=== PATIENT | female | born 1960 | race Caucasian/White ===

== ENCOUNTER 2022-02-23 12:44 | Outpatient (CLI) | payer MEDICARE, SELFPAY ==
[2022-02-23 22:06] LABS: Chloride* 105 mmol/L (96-114)
[2022-02-23 22:07] LABS: Albumin* 4.6 g/dL (3.3-5.0); Sodium* 137 mmol/L (135-149)
[2022-02-23 22:08] LABS: Potassium* 4.3 mmol/L (3.6-5.1)
[2022-02-23 22:10] LABS: Alkaline Phosphatase* 82 U/L (40-150); Aspartate Amino Transferase* 26 U/L (12-35); Bilirubin Total* 0.4 mg/dL (0.1-1.5); Blood Urea Nitrogen* 15 mg/dL (7-30); Carbon Dioxide* 25 mmol/L (20-32); Cholesterol* 181 mg/dL (90-199); Creatinine* 0.9 mg/dL (0.5-1.5); Estimated Glomerular Filt Rate 73 ml/min; Glucose* 89 mg/dL (60-115); Total Protein* 6.8 g/dL (6.0-8.3)
[2022-02-23 22:11] LABS: Alanine Aminotransferase* 21 U/L (4-35); Calcium* 9.5 mg/dL (8.4-10.6); HDL Cholesterol* 61 mg/dL (>=50); LDL Cholesterol Calculated 91 mg/dL (<100); Triglycerides* 146 mg/dL (40-149)
[2022-02-23 22:43] LABS: Amphetamine Screen Urine Negative (Negative); Barbiturate Screen Urine Negative (Negative); Benzodiazepines Screen Urine Negative (Negative); Cocaine Screen Urine Negative (Negative); Methadone Screen Urine Negative (Negative); Methamphetamines Screen Urine Negative (Negative); Opiate Screen Urine Negative (Negative); Oxycodone Screen Urine Negative (Negative); Phencyclidine Screen Urine Negative (Negative); Tricyclic Antidepressant Urine Negative (Negative)
[2022-02-23 22:49] LABS: Cannabinoid Screen Urine POSITIVE (Negative)
[2022-02-24] LABS: Microalbumin Creatinine Ratio 250 mg/g (0-30); Microalbumin Urine < 1 mg/dL
== END 2022-02-23 12:45 | disposition home or self-care (01) ==
PROVIDERS: PCP Family Medicine; Visit Provider Family Medicine
DX: Z00.00 Encounter for general adult medical examination without abnormal findings (principal); R53.83 Other fatigue; E78.5 Hyperlipidemia, unspecified; I10 Essential (primary) hypertension; F41.9 Anxiety disorder, unspecified; Z79.899 Other long term (current) drug therapy; Z51.81 Encounter for therapeutic drug level monitoring; G89.29 Other chronic pain; Z13.29 Encounter for screening for other suspected endocrine disorder
CPT/HCPCS: 80053; 80061; 80306; 82043; 82570; 84443

== ENCOUNTER 2022-03-23 11:09 | Outpatient (CLI) | payer MEDICARE, SELFPAY ==
--- NOTE | 2022-03-23 11:00 | CRLHL7_ITS ---
For Patients: As a result of the Century Cures Act, medical imaging exams and procedure reports are released immediately into your electronic medical record. You may view this report before your referring provider. If you have questions, please contact your health care provider. INDICATION: proteinuria, HTN TECHNIQUE: Grayscale, color Doppler and power Doppler evaluation of the renal arteries performed. COMPARISON: None available FINDINGS: BILATERAL RENAL ARTERY DUPLEX ULTRASOUND ABDOMINAL AORTA: Peak systolic velocity = 70 cm/s. No aortic aneurysm. RIGHT KIDNEY: 11.8 cm in length. There is no hydronephrosis. 1.2 cm simple cyst upper pole. Peak systolic velocity = 113 cm/second Renal artery to aortic peak systolic velocity ratio = 1.6 Resistive indices: 0.5-0.6 Renal vein = patent LEFT KIDNEY: 11.7 cm in length. There is no hydronephrosis. 1.2 cm simple cyst lower pole Peak systolic velocity = 117 cm/second Renal artery to aortic peak systolic velocity ratio = 1.7 Resistive indices: 0.5 Renal vein = patent IMPRESSION: No evidence of significant renal artery stenosis. Dictated by Berry Wallace MD @ 03/23/2022 2:12:33 PM (Electronically Signed)
--- OUTSIDE RECORDS SUMMARY | 2022-03-23 11:12 | XMS_ITS | Clinical Summary ---
:1960 Author Organization [facility] [place] [address] Care Team Providers Name Role Phone Pcp, No Primary Care Provider Unavailable Allergies No known active allergies Medications Medication Sig Dispensed Refills Start Date End Date Status albuterol HFA Inhale 2 Puffs by 1 Inhaler 2 02/14/2015 Active (PRO-AIR,VENTOLIN,PROVE mouth every 4 NTIL) 90 mcg/actuation hours if needed. inhalerIndications: proventil Asthma exacerbation mometasone-formoterol Inhale 2 Puffs by 1 Inhaler 5 02/14/2015 Active (DULERA) 200-5 mouth 2 times mcg/actuation daily. inhalerIndications: Asthma, mild persistent, uncomplicated lisinopril (PRINIVIL; Take 1 tablet by 90 tablet 0 02/01/2016 Active ZESTRIL) 10 mg mouth once daily. tabletIndications: HTN (hypertension) simvastatin (ZOCOR) 40 Take 1 tablet by 60 tablet 0 07/02/2016 Active mg tabletIndications: mouth once daily Other hyperlipidemia with evening meal. Active Problems Problem Noted Date Hyperlipidemia 08/07/2015 Asthma 07/30/2014 HTN (hypertension) 07/30/2014 Resolved Problems Problem Noted Date Resolved Date Hyperlipidemia 07/30/2014 08/07/2015 Immunizations Name Administration Dates Next Due COVID-19 vaccine (Moderna 100mcg/0.5mL) PFJOSEF 11/13/2020, 10/16/2020 Influenza, IIV4 08/07/2015 Tdap 08/07/2015 Family History Medical History Relation Name Comments Good Health Mother Relation Name Status Comments Mother Social History Tobacco Use Types Packs/Day Years Used Date Never Smoker Smokeless Tobacco: Never Used Alcohol Use Standard Drinks/Week Comments Yes 0 (1 standard drink = 0.6 oz pure alcoho l) occasional Alcohol Habits Answer Date Recorded How often do you have a drink containing alcohol? Not asked How many drinks containing alcohol do you have on a typical Not asked day when you are drinking? How often do you have six or more drinks on one occasion? No t asked Comment: occasional 07/30/2014 Sex Assigned at Date Recorded Not on file Obstetrics History Last Filed Vital Signs Vital Sign Reading Time Taken Comments Blood Pressure 130/90 08/15/2015 8:39 AM FRONT SIGHT ATTACHER Pulse 62 08/15/2015 8:36 AM FRONT SIGHT ATTACHER Temperature 36.5 ??C (97.7 ??F) 07/30/2014 7:53 AM FRONT SIGHT ATTACHER Respiratory Rate - - Oxygen Saturation 96% 07/30/2014 7:53 AM FRONT SIGHT ATTACHER Inhaled Oxygen Concentration - - Weight 113.7 kg (250 lb 11.2 oz) 08/07/2015 9:50 AM FRONT SIGHT ATTACHER Height 160.7 cm (5' 3.25) 08/07/2015 9:50 AM FRONT SIGHT ATTACHER Body Mass Index 44.06 08/07/2015 9:50 AM FRONT SIGHT ATTACHER Plan of Treatment Health Maintenance Due Date Last Done Comments Hepatitis C screening for age 18-79 1979 Colonoscopy through age 75 2006 Mammogram for age 45-75 2006 Zoster (shingles) series for age 1003/30/2011 50+ (1 of 2) BMI (ht and wt on same day) for age 0208/07/2016 08/07/2015 18+ Depression screening for age 12+ 08/07/2016 08/07/2015 Pap test for age 21-65 08/07/2018 08/07/2015, 01/12/2012 (Completed outside of [facility]) Lipids for age 45-75 08/07/2020 08/07/2015, 02/14/2015, 07/30/2014 COVID-19 vaccine series (3 - 04/15/2021 11/13/2020, 021 Booster for Moderna series) Influenza for age 50-64 02/11/2022 08/07/2015 Tetanus booster 08/07/2025 08/07/2015 Tdap Completed 08/07/2015 Goals Goal Patient Goal Associated Recent Patient-Stated? Author Type Problems Progress BLOOD PRESSURE Blood Pressure No Chao, - MAINTAINS BP Idalia P, less than 140/90 Results Not on filefrom Last 3 Months Insurance Payer Benefit Plan / Subscriber ID Effective Phone Address T ype Group Dates COMMERCIAL COMMERCIAL [id number] 2014-Pres [phone] [phone] [place] [address] MEDICARE PART A MEDICARE PART A [id number] 2014-Prese ATTN: CLAIMS - HB USE ONLY HB ONLY nt [address] [place] [address] MEDICARE - PB MEDICARE PB [id number] 2015-Prese ATTN: CLAIMS USE ONLY ONLY nt [address] [place] [address] Rhea OTT Third Green Party Self [id number] (Home) [address] [place] [address] Care Teams Scada Technician Relationship Specialty Start Date End Date Pcp, No PCP - General 09/30/16 .
== END 2022-03-23 11:10 | disposition home or self-care (01) ==
LOC: US 11:11
PROVIDERS: PCP Family Medicine; Visit Provider Internal Medicine Nephrology
DX: R80.9 Proteinuria, unspecified (principal); I10 Essential (primary) hypertension
CPT/HCPCS: 76775; 93975

== ENCOUNTER 2022-05-11 15:51 | Outpatient (CLI) | payer MEDICARE, SELFPAY ==
--- OUTSIDE RECORDS SUMMARY | 2022-05-11 07:56 | XMS_ITS | Clinical Summary ---
:1960 Author Organization [facility] Address [address] [place] [address] Care Team Providers Name Role Phone Unavailable Primary Care Provider Unavailable Source Comments Patient records contain information from all sites at [facility]. For routine questions regarding patient records, call [phone] during business hours, M-F 8:00 AM - 5:00 PM Central Time. Record requests for emergency care only can be directed to [phone] at any time.[facility] Medications Medication Sig Dispensed Refills Start Date End Date Status albuterol 90 Inhale 2 puffs. 0 02/14/2015 Active mcg/actuation inhaler lisinopriL Take 1 tablet by 0 02/01/2016 A ctive (PRINIVIL,ZESTRIL) 10 mouth daily. mg tablet mometasone-formoterol Inhale 2 puffs 2 0 02/14/2015 Active (DULERA 200) 200-5 (two) times a mcg/actuation inhaler day. simvastatin (ZOCOR) 40 Take 40 mg by 0 07/02/2016 Active mg tablet mouth. Active Problems Problem Noted Date Chronic Kidney Disease Stage 1 Glomerular Filtration R ate Greater Than 90 03/16/2022 Hyperlipidemia 08/07/2015 Asthma 07/30/2014 Hypertension And Chronic Kidney Disease Stage 1 2014 Encounters Date Type Specialty Care Team Description 03/16/2022 External Outreach Nephrology and Shola, Hyperten devika And Chronic Kidney Disease Stage 1 (Primary Dx); Hypertension Ortiz Louis Jr., Chronic Kidney Disease Stage 1 Glomerular Filtration Rate Greater Than 90; D.O. Hyperlipidemia; Asthma (HCC) from Last 3 Months Social History Tobacco Use Types Packs/Day Years Used Date Smoking Tobacco: Never Assessed Sex Assigned at Date Recorded Not on file Last Filed Vital Signs Vital Sign Reading Time Taken Comments Blood Pressure 122/82 03/16/2022 3:00 PM CDT Pulse 71 03/16/2022 3:00 PM CDT Temperature 36.5 ??C (97.7 ??F) 03/16/2022 3:00 PM CDT Respiratory Rate - - Oxygen Saturation - - Inhaled Oxygen Concentration - - Weight 125 kg (274 lb 14.6 oz) 03/16/2022 3:00 PM CDT Height 160 cm (5' 2.99) 03/16/2022 3:00 PM CDT Body Mass Index 48.71 03/16/2022 3:00 PM CDT Plan of Treatment Health Maintenance Due Date Last Done Comments CT Colonography 1960 Cervical Cancer Screening 1960 Cologuard 1960 Colonoscopy 1960 Colorectal Cancer Screening 1960 Creatinine Level 1961 FIT 1961 Fasting Glucose for Diabetes Screening 1960 HIV Screening 1960 Hepatitis C Screening 1961 Lipid (Cholesterol) Screening 1960 Mammogram 1960 Potassium Level 1961 Sodium Level 1960 Pneumococcal vaccine (0-64 years) (1 - 1967 PCV) COVID-19 Vaccine (3 - Booster for Moderna 01/08/20212020, 10/16/2020 series) Depression Screening (Annual PHQ-2) 06/13/2021 Influenza Vaccine (#1) 2022 06/19/2021, 08/07/2015 Office Visit for Blood Pressure Check / 03/16/2023 03/16/20 22 Re-check DTaP,Tdap,and Td Vaccines (2 - Td or Tdap) 08/07/202508/07 Zoster Vaccines Completed 06/19/2021, 03/03/2021 Insurance Payer Benefit Plan / Subscriber ID Effective Dates Phone Addre ss Type Group AARP AARP MEDICARE [id number] 2021-Present [phone] [address] [address] [place] [address]
--- OUTSIDE RECORDS SUMMARY | 2022-05-11 07:56 | XMS_ITS | Encounter Summary ---
:1960 Author Organization [facility] Address [address] [place] [address] Care Team Providers Name Role Phone Unavailable Primary Care Provider Unavailable Reason for Visit Appointment Request (Routine) - Closed Specialty Diagnoses / Procedures Referred By Contact Refer red To Contact Nephrology and Sonia, Hypertension Cher Ray D.O. [address] [place] [address] Referral ID Status Reason Start Date Expiration Date Visits Requ ested Visits Authorized [id number] Closed 03/12/2022 03/12/2023 1 Encounter Details Date Type Department Care Team Description 03/16/2022 External Outreach Division of Alaina Jolley on And Chronic Kidney Disease Stage 1 (Primary Dx); Nephrology and Ortiz Louis Jr., Chronic Kidn ey Disease Stage 1 Glomerular Filtration Rate Greater Than 90; Hypertension in D.O. Hyperlipidemia; [place], [place] [address] [facility] Asthma (HCC) [address] [place] [id number] [phone] Social History Tobacco Use Types Packs/Day Years Used Date Smoking Tobacco: Never Assessed Sex Assigned at Date Recorded Not on file documented as of this encounter Last Filed Vital Signs Vital Sign Reading [...] Mass Index 48.71 03/16/2022 3:00 PM CDT documented in this encounter Progress Notes Ortiz Jolley Jr., D.O. - 03/16/2022 3:00 PM CDT Referring Provider: No primary care provider on file. SUBJECTIVE REASON FOR VISIT [facility] Consultation and management regards microalbuminuria and hypertension HISTORY OF PRESENT ILLNESS Ms. Perea is a 61 y.o. female who presents with a background history of severe asthma, medically complicated overweight situation, hypertension, and a recent discovery of microalbuminuria of 250 milligrams/gram. She is a substantial family history of hypertension, with all of her 1st 2nd and 3rd degree relatives having hypertension beginning early in life. She was discovered in 2007 during an episode of significant asthma. She is been treated and well managed with Khurram inhibition. She is not had lower extremity swelling she is never had hypokalemia, no spells associated with her hypertension. She has not had renal imaging. She does not heavily utilize NSAIDs, nor does she drink alcohol or smoke cigarettes. She avoid sodium as her has hypertension as well. Her blood pressures have been excellent recently. In fact often in physician's offices her blood pressures are somewhat low. She does have joint stiffness and pain but has never had inflammation of her joints. She does not suffer with rash she is not had constitutional complaints. No unintended weight loss, her health screening is up-to-date. No episodes of gout. She does however have a substantial history of sleep disordered breathing. She awakens with snort and start arousal, she awakens quite fatigued, she has frequent morning headaches, her has out voiced concern regards her stopping breathing and snoring patterns. This has been brought up by her primary care physician she is been reluctant to move forward with evaluation. Her asthma is currently well controlled it does have some seasonal aspect. No past medical history on file. Current Outpatient Medications: albuterol 90 mcg/actuation inhaler, Inhale 2 puffs., Disp: , Rfl: lisinopriL (PRINIVIL,ZESTRIL) 10 mg tablet, Take 1 tablet by mouth daily., Disp: , Rfl: mometasone-formoterol (DULERA 200) 200-5 mcg/actuation inhaler, Inhale 2 puffs 2 (two) times a day., Disp: , Rfl: simvastatin (ZOCOR) 40 mg tablet, Take 40 mg by mouth., Disp: , Rfl: REVIEW OF SYSTEMS All other systems reviewed and are negative. OBJECTIVE BP 122/82 Pulse 71 Temp 36.5 ??C Ht 160 cm Wt 125 kg BMI 48.71 kg/m?? PHYSICAL EXAMINATION General: Awake alert oriented HEENT: OK, EOMI, Mucous membranes moist, no oral lesions, oropharynx crowded Neck: No Masses, No Bruits Lungs: Clear to ascultation Heart: Regular Rate and Rhythm, No ectopy Murmurs or rubs Abdomen: Soft, Non-tender Extremities: No cyanosis, No clubbing: No edema Neuro: Cranial Nerves intact, Gait is normal, strength grossly normal Skin: no suspicious lesions identified Psychiatric: Normal affect DIAGNOSTICS Note normal electrolytes normal CBC urinalysis without an active urinary sediment, and microalbumin to creatinine ratio 250 milligrams/gram ASSESSMENT / PLAN #1 Hypertension And Chronic Kidney Disease Stage 1 I am well satisfied with her blood pressure control common believe Khurram inhibition to be the correct agent for her. I am strongly suspicious however that her sleep disordered breathing is actually reflection of obstructive sleep apnea, which is driving perhaps some of her hypertension and likely her proteinuria could be associated with a focal sclerosis lesion which would be secondary to her nocturnal hypoxemia. Going forward: 1. Continue with lisinopril 2. Low-sodium diet 3. No NSAIDs or Munroe 2 inhibitors 4. Sleep study 5. Check CRP level 6. I will see her back for the end of the year. #2 Chronic Kidney Disease Stage 1 Glomerular Filtration Rate Greater Than 90 Please see above discussion she has proteinuria with preserved renal function, I suspect on the background of sleep disordered breathing and secondary focal sclerosis lesion. However, hypertensive nephrosclerosis, or-less likely, interstitial nephritis perhaps associated with a connective tissue disorder could be considered. Also primary glomerular lesion such as IgA, membranous, or other inherited or secondary focal sclerosis lesions could be considered. I do not believe a renal biopsy is necessary at this point, and I will hold off on a extensive serologic battery until I see her back. #3 Hyperlipidemia Well controlled #4 Asthma (HCC) Seems well controlled #5 Sleep disordered breathing Clinically and from habitus perspective she appears to have a strong possibility of obstructive sleep apnea. I will arrange for overnight oximetry and or possible sleep study and a visit with our ENT colleagues as the patient is not anxious to pursue CPAP, but would be willing to entertainAn oral device. Total time: 1 hour Counseling Time: 50 minutes Ortiz Jolley Jr., D.O. documented in this encounter Plan of Treatment Not on filedocumented as of this encounter Visit Diagnoses Diagnosis Hypertension And Chronic Kidney Disease Stage 1 - Primary Chronic Kidney Disease Stage 1 Glomerula r Filtration Rate Greater Than 90 Hyperlipidemia Asthma (HCC) documented in this encounter
--- OUTSIDE RECORDS SUMMARY | 2022-05-11 07:56 | XMS_ITS | Clinical Summary ---
:1960 Author Organization [facility] [place] [address] Care Team Providers Name Role Phone Pcp, [...] Comments Blood Pressure 130/90 08/15/2015 8:39 AM COLLAR CUTTER Pulse 62 08/15/2015 8:36 AM COLLAR CUTTER Temperature 36.5 ??C (97.7 ??F) 07/30/2014 7:53 AM COLLAR CUTTER Respiratory Rate - - Oxygen Saturation 96% 07/30/2014 7:53 AM COLLAR CUTTER Inhaled Oxygen Concentration - - Weight 113.7 kg (250 lb 11.2 oz) 08/07/2015 9:50 AM COLLAR CUTTER Height 160.7 cm (5' 3.25) 08/07/2015 9:50 AM COLLAR CUTTER Body Mass Index 44.06 08/07/2015 9:50 AM COLLAR CUTTER Plan of Treatment Health Maintenance Due Date Last Done Comments HIV for age 15-65 1976 Hepatitis C screening for age 18-79 1979 Colonoscopy through age 75 2006 Mammogram for age 45-75 2006 Zoster (shingles) series for age 1003/30/2011 50+ (1 of 2) BMI (ht and wt on same day) for age 0208/07/2016 08/07/2015 18+ Depression screening for age 12+ 08/07/2016 08/07/2015 Pap test for age 21-65 08/07/2018 08/07/2015, 01/12/2012 ([facility]) Lipids for age 45-75 08/07/2020 08/07/2015, 02/14/2015, 07/30/2014 COVID-19 vaccine series (3 - 01/08/2021 11/13/2020, 021 Booster for Moderna series) Influenza for age 50-64 02/11/2022 08/07/2015 Tetanus booster 08/07/2025 08/07/2015 Tdap Completed 08/07/2015 Goals Goal Patient Goal Associated Recent Patient-Stated? Author Type Problems Progress BLOOD PRESSURE Blood Pressure Dinora Guidry, - MAINTAINS BP Idalia P, less than 140/90 Results Not on filefrom Last 3 Months Insurance Payer Benefit Plan / Subscriber ID Effective Phone Address T ype Group Dates COMMERCIAL COMMERCIAL [id number] 2014-Pres [phone] [phone] [place] [address] MEDICARE PART A MEDICARE PART A [id number] 2014-Prese ATTN: CLAIMS - HB USE ONLY HB ONLY nt [address] [place] [address] MEDICARE - PB MEDICARE PB [id number] 2015-Prese ATTN: CLAIMS USE ONLY ONLY nt [address] [place] [address] ELIAZARRhea Guaman Third Democrat Self [id number] [place] [address] Care Teams Spinneret Person Relationship Specialty Start Date End Date Pcp, No PCP - General 09/30/16 .
[2022-05-11 14:05] LABS: Creatinine Urine 115.1 mg/dL
[2022-05-11 14:10] LABS: Microalbumin Creatinine Ratio 0 mg/g (0-30); Microalbumin Urine 1 mg/dL
[2022-05-11 14:25] LABS: Uric Acid* 6.5 mg/dL (2.2-8.4)
[2022-05-11 14:28] LABS: C Reactive Protein* 0.9 mg/dL (0.5-1.0)
== END 2022-05-11 15:52 | disposition home or self-care (01) ==
PROVIDERS: PCP Family Medicine; Visit Provider Internal Medicine Nephrology
DX: I10 Essential (primary) hypertension (principal); R80.9 Proteinuria, unspecified
CPT/HCPCS: 82043; 82570; 84550; 86140

== ENCOUNTER 2022-08-30 11:53 | Outpatient (CLI) | payer MEDICARE, SELFPAY | END 2022-08-30 11:54 | disposition home or self-care (01) | PROVIDERS: PCP Family Medicine; Visit Provider Family Medicine | DX: E78.5 Hyperlipidemia, unspecified (principal); I10 Essential (primary) hypertension; R80.9 Proteinuria, unspecified; E66.01 Morbid (severe) obesity due to excess calories; Z68.42 Body mass index [BMI] 45.0-49.9, adult; Z79.899 Other long term (current) drug therapy; F33.9 Major depressive disorder, recurrent, unspecified; M51.26 Other intervertebral disc displacement, lumbar region; J45.40 Moderate persistent asthma, uncomplicated; G89.29 Other chronic pain | CPT/HCPCS: 80053; 80061; 82043; 82306; 82570; 82607; 84443 ==

== ENCOUNTER 2023-01-12 10:55 | Outpatient (CLI) | payer MEDICARE, SELFPAY | END 2023-01-12 10:56 | disposition home or self-care (01) | LOC: NFLDREF 01-13 07:12 | PROVIDERS: PCP Family Medicine; Referring Provider Family Medicine; Visit Provider Family Medicine | DX: G89.29 Other chronic pain (principal); Z79.891 Long term (current) use of opiate analgesic | CPT/HCPCS: 80306 ==

== ENCOUNTER 2023-10-20 09:15 | Outpatient (CLI) | payer MEDICARE, SELFPAY | END 2023-10-20 09:16 | disposition home or self-care (01) | PROVIDERS: PCP Family Medicine; Visit Provider Family Medicine | DX: I10 Essential (primary) hypertension (principal); G89.4 Chronic pain syndrome; E78.2 Mixed hyperlipidemia; R73.09 Other abnormal glucose; Z11.59 Encounter for screening for other viral diseases | CPT/HCPCS: 80053; 80061; 80306; 82043; 82570; 86803 ==

== ENCOUNTER 2023-12-16 09:57 | Outpatient (CLI) | payer MEDICARE, SELFPAY ==
--- OUTSIDE RECORDS SUMMARY | 2023-12-16 10:06 | XMS_ITS ---
Author Organization [facility] Address [address] [place] [address] Care Team Providers Care Paralegal Name Role Phone Unavailable Unavailable Unavailable Surgery Details Not on file Complications Check Surgery Details section. Procedure Estimated Blood Loss Check Surgery Details section. Procedure Findings Check Surgery Details section. Procedure Specimens Taken Check Surgery Details section.
--- OUTSIDE RECORDS SUMMARY | 2023-12-16 10:06 | XMS_ITS | Referral Summary ---
Author Organization [facility] Address [address] [place] [address] Care Team Providers Care Billboard Erector Helper Name Role Phone Unavailable Primary Care Provider Unavailabl e Source Comments Patient records contain information from all sites at [facility]. For routine questions regarding patient records, call [phone] during business hours, M-F 8:00 AM - 5:00 PM Central Time. Record requests for emergency care only can be directed to [phone] at any time.[facility] Medications Medication Sig Dispensed Refills Start Date End Date Status albuterol 90 mcg/actuation inhaler Inhale 2 puffs. 02/14/2015 Active lisinopriL (PRINIVIL,ZESTRIL) 10 mg tablet Take 1 tablet by mouth daily. 02/01/2016 Active mometasone-formoterol (DULERA 200) 200-5 mcg/actuation inhaler Inhale 2 puffs 2 (two) times a day. 02/14/2015 Active simvastatin (ZOCOR) 40 mg tablet Take 40 mg by mouth. 07/02/2016 Active Active Problems Problem Noted Date Diagnosed Date Chronic Kidney Disease Stage 1 Glomerular Filtration Rate Greater Than 90 03/16/2022 Hyperlipidemia 08/07/2015 Asthma 07/30/2014 Hypertension And Chronic Kidney Disease Stage 1 07/30/2014 Social History Tobacco Use Types Packs/Day Years Used Date Smoking Tobacco: Never Assessed Nutrition Answer Date Recorded Nutrition: EVOO Fat Source Unknown 03/12 Nutrition: Servings of Fruits/Vegetables per Day Not on file 03/12/2022 Dental Answer Date Recorded Dental: Regular Dentist Unknown 03/12/20 Sex and Gender Information Value Date Recorded Sex Assigned at Not on file Gender Identity Not on file Sexual Orientation Not on file Last Filed Vital Signs Vital Sign Reading Time Taken Comments Blood Pressure 122/82 03/16/2022 3:00 PM CDT Pulse 71 03/16/2022 3:00 PM CDT Temperature 36.5 ??C (97.7 ??F) 03/16/2022 3:00 PM CD T Respiratory Rate - - Oxygen Saturation - - Inhaled Oxygen Concentration - - Weight 125 kg (274 lb 14.6 oz) 03/16/2022 3:00 P M CDT Height 160 cm (5' 2.99) 03/16/2022 3:00 PM CDT Body Mass Index 48.71 03/16/2022 3:00 PM CDT Plan of Treatment Not on file
--- OUTSIDE RECORDS SUMMARY | 2023-12-16 10:06 | XMS_ITS | Clinical Summary ---
Author Organization [facility] Address [place], [place] [address] Care Team Providers Care Television News Reporter Name Role Phone Pcp, No Primary Care Provider Unavailabl e Allergies No known active allergies Medications Medication Sig Dispensed Refills Start Date End Date Status albuterol HFA (PRO-AIR,VENTOLIN,PROV ENTIL) 90 mcg/actuation inhalerIndications:Ast hma exacerbation Inhale 2 Puffs by mouth every 4 hours if needed. proventil 1 Inhaler 2 02/14/2015 Active mometasone-formoterol (DULERA) 200-5 mcg/actuation inhalerIndications:Ast hma, mild persistent, uncomplicated Inhale 2 Puffs by mouth 2 times daily. 1 Inhaler 5 02/14/2015 Active lisinopril (PRINIVIL; ZESTRIL) 10 mg tabletIndications:HTN (hypertension) Take 1 tablet by mouth once daily. 90 tablet 0 02/01/2016 Active simvastatin (ZOCOR) 40 mg tabletIndications:Othe r hyperlipidemia Take 1 tablet by mouth once daily with evening meal. 60 tablet 07/02/2016 Active Active Problems Problem Noted Date Diagnosed Date Hyperlipidemia 08/07/2015 Asthma 07/30/2014 HTN (hypertension) 07/30/2014 Resolved Problems Problem Noted Date Diagnosed Date Resolved Date Hyperlipidemia 07/30/2014 08/07/2015 Immunizations Name Administration Dates Next Due COVID-19 vaccine (Moderna 100mcg/0.5mL) PF MDV 11/13/2020,10/16/2020 Influenza, IIV4 08/07/2015 Tdap 08/07/2015 Family History Medical History Relation Name Comments Good Health Mother Relation Name Status Comments Mother Social History Tobacco Use Types Packs/Day Years Used Date Smoking Tobacco: Never Smokeless Tobacco: Never Alcohol Use Standard Drinks/Week Comments Yes 0 (1 standard drink = 0.6 oz pur e alcohol) occasional Sex and Gender Information Value Date Recorded Sex Assigned at Not on file Gender Identity Not on file Sexual Orientation Not on file Obstetrics History Last Filed Vital Signs Vital Sign Reading Time Taken Comments Blood Pressure 130/90 08/15/2015 8:39 AM STORE WAREHOUSE ASSOCIATE Pulse 62 08/15/2015 8:36 AM STORE WAREHOUSE ASSOCIATE Temperature 36.5 ??C (97.7 ??F) 07/30/2014 7:53 AM CS T Respiratory Rate - - Oxygen Saturation 96% 07/30/2014 7:53 AM STORE WAREHOUSE ASSOCIATE Inhaled Oxygen Concentration - - Weight 113.7 kg (250 lb 11.2 oz) 08/07/2015 9:50 AM STORE WAREHOUSE ASSOCIATE Height 160.7 cm (5' 3.25) 08/07/2015 9:50 AM CS T Body Mass Index 44.06 08/07/2015 9:50 AM STORE WAREHOUSE ASSOCIATE Plan of Treatment Health Maintenance Due Date Last Done Comments HIV for age 15-65 1976 Hepatitis C screening for age 18-79 1979 Colonoscopy through age 75 2006 Mammogram for age 45-75 2006 Zoster (shingles) series for age 50+ (1 of 2) 2011 BMI (ht and wt on same day) for age 18+ 08/07/2016 08/07/2015 Depression screening for age 12+ 08/07/2016 08/07/2015 Pap test for age 21-65 08/07/2018 6, 01/12/2012 [facility] Lipids for age 45-75 08/07/2020 08/07/2015, 02/14/2015, 07/30/2014 COVID-19 vaccine series ( season) 2023 11/13/2020, 10/16/2020 Influenza for age 50-64 02/12/2024 08/07/2015 Tetanus booster 08/07/2025 08/07/2015 Tdap Completed 08/07/2015 Pneumococcal series for age 6-64 Aged Out No longer eligible based on patient's age to complete this topic Goals Goal Patient Goal Type Associated Problems Recent Progress Patient-Stated? Author BLOOD PRESSURE - MAINTAINS BP less than 140/90 Blood Pressure No Idalia Guidry MD Procedures Procedure Name Priority Date/Time Associated Diagnosis Comments LEAD CUSTODIAN THIN PREP PAP SCREEN IMAGED Routine 08/07/2015 11:21 AM STORE WAREHOUSE ASSOCIATE Screening for malignant neoplasm of cervix LIPID PANEL W REFLEX MEASURED LDL Routine 08/07/2015 10:47 AM STORE WAREHOUSE ASSOCIATE Other hyperlipidemia from Last 3 Months or Most Recently Relevant to Health Maintenance Results * LEAD CUSTODIAN THIN PREP PAP SCREEN IMAGED (08/07/2015 11:21 AM STORE WAREHOUSE ASSOCIATE) LEAD CUSTODIAN CYTOLOGY See Anatomic Pathology case 08/11/2015 8:00 AM STORE WAREHOUSE ASSOCIATE [facility] Specimen (specimen) (Cervical) Non-Blood / Unknown 08/07/2015 11:21 AM STORE WAREHOUSE ASSOCIATE 08/07/2015 11:21 AM STORE WAREHOUSE ASSOCIATE Idalia Guidry MD PATHOLOGY/CYTOLOGY [facility] [address] [place] [address], * (ABNORMAL) LIPID PANEL W REFLEX MEASURED LDL (08/07/2015 10:47 AM STORE WAREHOUSE ASSOCIATE) CHOLESTEROL,TOTAL 260(H) 100 - 199 mg/dL 08/07/2015 5:20 PM STORE WAREHOUSE ASSOCIATE [facility] TRIGLYCERIDES 144 <150 mg/dL 08/07/2015 5:20 PM STORE WAREHOUSE ASSOCIATE [facility] HDL CHOLESTEROL 67 >40 mg/dL 08/07/2015 5:20 PM STORE WAREHOUSE ASSOCIATE [facility] NON-HDL CHOLESTEROL 193(H) <145 mg/dl 08/07/2015 5:20 PM STORE WAREHOUSE ASSOCIATE [facility] CHOL/HDL RATIO 3.88 <4.50 08/07/2015 5:20 PM STORE WAREHOUSE ASSOCIATE [facility] LDL CHOLESTEROL 164(H) <=130 mg/dL 08/07/2015 5:20 PM STORE WAREHOUSE ASSOCIATE [facility] PATIENT STATUS FASTING 08/07/2015 5:20 PM STORE WAREHOUSE ASSOCIATE [facility] Blood specimen (specimen) BLOOD SPECIMEN / Unknown Venipuncture / Unknown 08/07/2015 10:47 AM STORE WAREHOUSE ASSOCIATE 08/07/2015 10:47 AM STORE WAREHOUSE ASSOCIATE Idalia Guidry MD CHEMISTRY TENA [facility] [address] [place] [address], [place] from Last 3 Months or Most Recently Relevant to Health Maintenance Care Teams Television News Reporter Relationship Specialty Start Date End Date Pcp, No . PCP - General 09/30/16
--- OUTSIDE RECORDS SUMMARY | 2023-12-16 10:06 | XMS_ITS | Continuity of Care Document ---
Author Organization [facility] Address [address] [address] [place] [address] Phone Care Team Providers Care Multineedle Shirrer Name Role Phone No Information Unavailable Unavailable Allergies, Adverse Reactions, Alerts Substance Reaction Status Criticality No Known Allergies Active No Inform ation Medications Medication Instructions Dosage Effective Dates (start - stop) Status Comments lisinopril 2.5 mg tablet take 1 tablet by oral route every day 2.5 MG - Active gabapentin 100 mg capsule take 1 capsule by ORAL route every day 100 MG - Active trazodone 50 mg tablet take 1 tablet by ORAL route every bedtime 50 MG - Active desvenlafaxine ER 50 mg tablet,extended release 24 hr take 1 tablet by oral route every day 50 MG - Active simvastatin 5 mg tablet take 1 tablet by oral route every day in the evening 5 MG - Active montelukast 10 mg tablet take 1 tablet by oral route every day as needed 10 MG - Active Stool Softener 50 mg capsule take 1 capsule by oral route every day at bedtime as needed 50 MG - Active Advair Diskus 100 mcg-50 mcg/dose powder for inhalation inhale 1 Puff(s) by Inhalation route every day 1 Puff(s) - Active Proventil HFA 90 mcg/actuation aerosol inhaler inhale 1 puff by INHALATION route every day as needed 1 puff - Active oxycodone 5 mg capsule take 1 capsule by oral route every 6 hours as needed for pain 5 MG - Active Procedures Procedure Date cancelled appt Advance Directives Directive Yes / No Effective Date File Name No Information Encounters Encounter Description Practice Location Reason(s) For Visit Diagnoses Date Provider Providers Copied on Encounter [facility], [address] [address], [place], [place], [id number], tel:[phone] No Information 4 No Information [facility], [address] [address], [place], [place], [id number], tel:[phone] [facility] GI Symptoms or Concerns (chief complaint) No Information 0 4 [facility] [address]. [address] [place] [address], [id number], . tel:[phone] Sabiha King MD. tel:[phone] erring Provider: Sabiha King MD E, [address] [place], [address]. tel:[phone] [facility], [address] [address], [place], [place], [id number], tel:[phone] [facility] No Information 4 Abhis[facility] M[facility]od. [address] [place] [address], [id number], . tel:[phone] Family History Family Member Type Diagnosis Age At Onset Father Problem (finding) Cirrhosis Sister Problem (finding) Cirrhosis Mother Problem (finding) Cirrhosis Mother Problem (finding) Cancer, kidney Brother Problem (finding) Alcoholism Sister Problem (finding) Hepatitis C Mother Problem (finding) Cancer, liver Sister Problem (finding) Hepatitis B Sister Problem (finding) Alcoholism Mother Problem (finding) Cancer, gastric Father Problem (finding) Alcoholism Mother Problem (finding) Alcoholism Immunizations Vaccine Date Status Comments SARS-COV-2 (COVID-19) vaccin e, mRNA, spike protein, LNP, bivalent, preservative free, 50 mcg/0.5 mL or 25 mcg/0.25 mL dose administered Note: [facility] bi-direct ional interface ; Source: Other Registry Influenza, injectable, Madin Crandall Canine Kidney, preservative free, quadrivalent Dec-09-2022 administered Note: [facility] bi- directional interface ; Source: Other Registry Seasonal, quadrivalent, recombinant, injectable influenza vaccine, preservative free administered Note: [facility] bi-direct ional interface ; Source: Other Registry zoster vaccine recombinant administered N ote: [facility] bi-directional interface ; Source: Other Registry zoster vaccine recombinant administered N ote: [facility] bi-directional interface ; Source: Other Registry SARS-COV-2 (COVID-19) vaccin e, mRNA, spike protein, LNP, preservative free, 100 mcg/0.5mL dose or 50 mcg/0.25mL dose administered Note: [facility] bi -directional interface ; Source: Other Registry SARS-COV-2 (COVID-19) vaccin e, mRNA, spike protein, LNP, preservative free, 100 mcg/0.5mL dose or 50 mcg/0.25mL dose administered Note: [facility] bi -directional interface ; Source: Other Registry Afluria Qd administered Note: [facility] bi-directional interface ; Source: Other Registry tetanus toxoid, reduced diphtheria toxoid, and acellular pertussis vaccine, adsorbed administered Note: [facility] b i-directional interface ; Source: Other Registry Afluria Qd administered Note: [facility] bi-directional interface ; Source: Other Registry Novel [id number], all formulations administered Note: [facility] bi-direct ional interface ; Source: Other Registry Payers Payer name Insurance type Covered libertarian ID Authoriza tion(s) No Information Social History Type Description Quantity Date Captured Comments Sex Female Smoking Status No Information Chief Complaint And Reason For Visit No Information Reason For Referral Reason For Referral No Information History Of Present Illness Encounter Date Complaint History Of Prese nt Illness GI Symptoms or Concerns Functional Status Date Functional Assessmen t No Information Instructions Date Instruction Additional Infor mation No Information Assessments Type Assessment Date No Information Patient Care Teams Name Effective Dates (start - stop) Status Members No Information
--- OUTSIDE RECORDS SUMMARY | 2023-12-16 10:06 | XMS_ITS | Clinical Summary ---
Author Organization [facility] Address [address] [place] [address] Care Team Providers Care Soil Conservation Aide Name Role Phone Unavailable Primary Care Provider Unavailabl e Source Comments Patient records contain information from all sites at [facility]. For routine questions regarding patient records, call [phone] during business hours, M-F 8:00 AM - 5:00 PM Central Time. Record requests for emergency care only can be directed to [phone] at any time.[facility] Medications Medication Sig Dispensed Refills Start Date [...] CT Colonography 1961 Cervical Cancer Screening 1961 Colonoscopy 1961 Creatinine Level (Kidney Fun ction Test) 1961 FIT 1961 Fasting Glucose for Diabetes Screening 1961 HIV Screening 1961 Hepatitis C Screening 1961 Lipid (Cholesterol) Screening 1961 Mammogram 1961 Potassium Level 1961 Sodium Level 1961 Pneumococcal vaccine (0-64 y ears) (1 of 2 - PCV) 1967 COVID-19 Vaccine (4 - 2022-2 4 season) 2023 05/21/2022, 11/13/2020, 10/16/2020 Office Visit for Blood Press ure Check / Re-check 03/16/2023 03/16/2022 Cologuard 03/26/2023 03/26/2020 Colorectal Cancer Screening 03/26/2023 Depression Screening (Annual PHQ-2) 06/13/2023 Influenza Vaccine (#1) 2024 , 06/19/2021, 08/07/2015, Additional history exists DTaP,Tdap,and Td Vaccines (2 - Td or Tdap) 08/07/2025 08/07/2015 Zoster Vaccines Completed 06/19/2021, 03/03/2021
== END 2023-12-16 09:58 | disposition home or self-care (01) ==
PROVIDERS: PCP Family Medicine; Visit Provider Family Medicine
DX: E78.5 Hyperlipidemia, unspecified (principal); I10 Essential (primary) hypertension; R80.9 Proteinuria, unspecified; Z11.59 Encounter for screening for other viral diseases
CPT/HCPCS: 80053; 80061; 82043; 82570; 86803

== ENCOUNTER 2024-02-15 09:03 | Outpatient (CLI) | payer MEDICARE, SELFPAY ==
--- OUTSIDE RECORDS SUMMARY | 2024-02-15 09:06 | XMS_ITS | Clinical Summary ---
Author Organization [facility] Address [address] [place] [address] Care Team Providers Care Trial Justice Name Role Phone Unavailable Primary Care Provider Unavailabl e Source Comments Patient records contain information from all sites at [facility]. For routine questions regarding patient records, call [phone] during business hours, M-F 8:00 AM - 5:00 PM Central Time. Record requests for emergency care only can be directed to [phone] at any time.[facility] Medications Medication Sig Dispensed Refills Start [...] Than 90 03/16/2022 Hyperlipidemia 08/07/2015 Asthma 07/30/2014 Hypertensive Chronic Kidney Disease With Stage 1 Through Stage 4 Chronic Kidney Disease, Or Unspecified Chronic Kidney Disease 07/30/2014 Social History Tobacco Use Types Packs/Day [...] ears) (1 of 2 - PCV) 1967 Office Visit for Blood Press ure Check / Re-check 03/16/2023 03/16/2022 Cologuard 03/26/2023 03/26/2020 Colorectal Cancer Screening 03/26/2023 Depression Screening (Annual PHQ-2) 06/13/2023 COVID-19 Vaccine (4 - 2022-2 4 season) 2024 05/21/2022, 11/13/2020, 10/16/2020 Influenza Vaccine (#1) 2024 , 06/19/2021, 08/07/2015, Additional history exists DTaP,Tdap,and Td Vaccines (2 - Td or Tdap) 08/07/2025 08/07/2015 Zoster Vaccines Completed 06/19/2021, 03/03/2021
--- OUTSIDE RECORDS SUMMARY | 2024-02-15 09:06 | XMS_ITS ---
Author Organization [facility] Address [address] [place] [address] Care Team Providers Care Mason Tender Restoration Labor Name Role Phone Unavailable Unavailable Unavailable Surgery Details Not on file Complications Check Surgery Details section. Procedure Estimated Blood Loss Check Surgery Details section. Procedure Findings Check Surgery Details section. Procedure Specimens Taken Check Surgery Details section.
--- OUTSIDE RECORDS SUMMARY | 2024-02-15 09:06 | XMS_ITS | Clinical Summary ---
Author Organization [facility] Address [place], [place] [address] Care Team Providers Care Knowledge Engineer Name Role Phone Pcp, No Primary Care [...] Comments Blood Pressure 130/90 08/15/2015 8:39 AM DRILL PRESS HAND Pulse 62 08/15/2015 8:36 AM DRILL PRESS HAND Temperature 36.5 ??C (97.7 ??F) 07/30/2014 7:53 AM CS T Respiratory Rate - - Oxygen Saturation 96% 07/30/2014 7:53 AM DRILL PRESS HAND Inhaled Oxygen Concentration - - Weight 113.7 kg (250 lb 11.2 oz) 08/07/2015 9:50 AM DRILL PRESS HAND Height 160.7 cm (5' 3.25) 08/07/2015 9:50 AM CS T Body Mass Index 44.06 08/07/2015 9:50 AM DRILL PRESS HAND Plan of Treatment Health Maintenance Due Date [...] 21-65 08/07/2018 6, 01/12/2012 [facility] Lipids for age 45-75 08/07/2020 08/07/2015, 02/14/2015, 07/30/2014 COVID-19 vaccine series ( season) 2024 11/13/2020, 10/16/2020 Influenza for age 50-64 02/12/2024 [...] Procedure Name Priority Date/Time Associated Diagnosis Comments APPLICATION PACKAGER THIN PREP PAP SCREEN IMAGED Routine 08/07/2015 11:21 AM DRILL PRESS HAND Screening for malignant neoplasm of cervix LIPID PANEL W REFLEX MEASURED LDL Routine 08/07/2015 10:47 AM DRILL PRESS HAND Other hyperlipidemia from Last 3 Months or Most Recently Relevant to Health Maintenance Results * APPLICATION PACKAGER THIN PREP PAP SCREEN IMAGED (08/07/2015 11:21 AM DRILL PRESS HAND) APPLICATION PACKAGER CYTOLOGY See Anatomic Pathology case 08/11/2015 8:00 AM DRILL PRESS HAND [facility] Specimen (specimen) (Cervical) Non-Blood / Unknown 08/07/2015 11:21 AM DRILL PRESS HAND 08/07/2015 11:21 AM DRILL PRESS HAND Idalia Guidry MD PATHOLOGY/CYTOLOGY [facility] [address] [place] [address], * (ABNORMAL) LIPID PANEL W REFLEX MEASURED LDL (08/07/2015 10:47 AM DRILL PRESS HAND) CHOLESTEROL,TOTAL 260(H) 100 - 199 mg/dL 08/07/2015 5:20 PM DRILL PRESS HAND [facility] TRIGLYCERIDES 144 <150 mg/dL 08/07/2015 5:20 PM DRILL PRESS HAND [facility] HDL CHOLESTEROL 67 >40 mg/dL 08/07/2015 5:20 PM DRILL PRESS HAND [facility] NON-HDL CHOLESTEROL 193(H) <145 mg/dl 08/07/2015 5:20 PM DRILL PRESS HAND [facility] CHOL/HDL RATIO 3.88 <4.50 08/07/2015 5:20 PM DRILL PRESS HAND [facility] LDL CHOLESTEROL 164(H) <=130 mg/dL 08/07/2015 5:20 PM DRILL PRESS HAND [facility] PATIENT STATUS FASTING 08/07/2015 5:20 PM DRILL PRESS HAND [facility] Blood specimen (specimen) BLOOD SPECIMEN / Unknown Venipuncture / Unknown 08/07/2015 10:47 AM DRILL PRESS HAND 08/07/2015 10:47 AM DRILL PRESS HAND Idalia Guidry MD CHEMISTRY TENA [facility] [address] [place] [address], [place] from Last 3 Months or Most Recently Relevant to Health Maintenance Care Teams Knowledge Engineer Relationship Specialty Start Date End Date Pcp, No . PCP - General 09/30/16
--- OUTSIDE RECORDS SUMMARY | 2024-02-15 09:06 | XMS_ITS | Referral Summary ---
Author Organization [facility] Address [address] [place] [address] Care Team Providers Care Senior Clinical Sas Programmer Name Role Phone Unavailable Primary Care Provider Unavailabl e Source Comments Patient records contain information from all sites at [facility]. For routine questions regarding patient records, call [phone] during business hours, M-F 8:00 AM - 5:00 PM Central Time. Record requests for emergency care only can be directed to [phone] at any time.[facility] Medications Medication Sig Dispensed Refills Start Date [...]
--- NOTE | 2024-02-15 09:15 | CRLHL7_ITS ---
For Patients: As a result of the 21st Century Cures Act, medical imaging exams and procedure reports are released immediately into your electronic medical record. You may view this report before your referring provider. If you have questions, please contact your health care provider. INDICATION: Dysphagia TECHNIQUE: Modified barium swallow. Fluoroscopic time 1 minute. FINDINGS/IMPRESSION: Anatomical structures are normal. Swallowing mechanism appears within normal limits. No episodes of penetration or aspiration. No significant findings. Dictated by Berry Wallace MD @ 02/15/2024 10:03:46 AM (Electronically Signed)
== END 2024-02-15 09:04 | disposition home or self-care (01) ==
LOC: RAD 09:04
PROVIDERS: PCP Family Medicine; Visit Provider Internal Medicine Gastroenterology
DX: R13.19 Other dysphagia (principal); K22.70 Barrett's esophagus without dysplasia; K21.9 Gastro-esophageal reflux disease without esophagitis
CPT/HCPCS: 74230; 92611

== ENCOUNTER 2024-02-28 09:52 | Outpatient (CLI) | payer MEDICARE, SELFPAY ==
--- OUTSIDE RECORDS SUMMARY | 2024-02-28 09:56 | XMS_ITS | Referral Summary ---
Author Organization [facility] Address [address] [place] [address] Care Team Providers Care Bracelet And Brooch Maker Name Role Phone Unavailable Primary Care Provider Unavailabl e Source Comments Patient records contain information from all sites at [facility]. For routine questions regarding patient records, call [phone] during business hours, M-F 8:00 AM - 5:00 PM Central Time. Record requests for emergency care only can be directed to [phone] at any time.[facility] Medications Medication Sig Dispensed Refills Start Date [...]
--- OUTSIDE RECORDS SUMMARY | 2024-02-28 09:56 | XMS_ITS ---
Author Organization [facility] Address [address] [place] [address] Care Team Providers Care Morning Show Host Name Role Phone Unavailable Unavailable Unavailable Surgery Details Not on file Complications Check Surgery Details section. Procedure Estimated Blood Loss Check Surgery Details section. Procedure Findings Check Surgery Details section. Procedure Specimens Taken Check Surgery Details section.
--- OUTSIDE RECORDS SUMMARY | 2024-02-28 09:56 | XMS_ITS | Clinical Summary ---
Author Organization [email or web address] Address [place], [place] [address] Care Team Providers Care Director Speech Name Role Phone Pcp, No Primary Care [...] Comments Blood Pressure 130/90 08/15/2015 8:39 AM ANIMAL LABORATORY HELPER Pulse 62 08/15/2015 8:36 AM ANIMAL LABORATORY HELPER Temperature 36.5 ??C (97.7 ??F) 07/30/2014 7:53 AM CS T Respiratory Rate - - Oxygen Saturation 96% 07/30/2014 7:53 AM ANIMAL LABORATORY HELPER Inhaled Oxygen Concentration - - Weight 113.7 kg (250 lb 11.2 oz) 08/07/2015 9:50 AM ANIMAL LABORATORY HELPER Height 160.7 cm (5' 3.25) 08/07/2015 9:50 AM CS T Body Mass Index 44.06 08/07/2015 9:50 AM ANIMAL LABORATORY HELPER Plan of Treatment Health Maintenance Due Date [...] 21-65 08/07/2018 6, 01/12/2012 [facility] Lipids for age 45-75 08/07/2020 08/07/2015, 02/14/2015, [...] Procedure Name Priority Date/Time Associated Diagnosis Comments CULTURED [employer] MAKER THIN PREP PAP SCREEN IMAGED Routine 08/07/2015 11:21 AM ANIMAL LABORATORY HELPER Screening for malignant neoplasm of cervix LIPID PANEL W REFLEX MEASURED LDL Routine 08/07/2015 10:47 AM ANIMAL LABORATORY HELPER Other hyperlipidemia from Last 3 Months or Most Recently Relevant to Health Maintenance Results * CULTURED [employer] MAKER THIN PREP PAP SCREEN IMAGED (08/07/2015 11:21 AM ANIMAL LABORATORY HELPER) CULTURED MARBLE [employer]ODU[employer] MAKER CYTOLOGY See Anatomic Pathology case 08/11/2015 8:00 AM ANIMAL LABORATORY HELPER [facility] Specimen (specimen) (Cervical) Non-Blood / Unknown 08/07/2015 11:21 AM ANIMAL LABORATORY HELPER 08/07/2015 11:21 AM ANIMAL LABORATORY HELPER Idalia Guidry MD PATHOLOGY/CYTOLOGY [facility] [address] [place] [address], * (ABNORMAL) LIPID PANEL W REFLEX MEASURED LDL (08/07/2015 10:47 AM ANIMAL LABORATORY HELPER) CHOLESTEROL,TOTAL 260(H) 100 - 199 mg/dL 08/07/2015 5:20 PM ANIMAL LABORATORY HELPER [facility] TRIGLYCERIDES 144 <150 mg/dL 08/07/2015 5:20 PM ANIMAL LABORATORY HELPER [facility] HDL CHOLESTEROL 67 >40 mg/dL 08/07/2015 5:20 PM ANIMAL LABORATORY HELPER [facility] NON-HDL CHOLESTEROL 193(H) <145 mg/dl 08/07/2015 5:20 PM ANIMAL LABORATORY HELPER [facility] CHOL/HDL RATIO 3.88 <4.50 08/07/2015 5:20 PM ANIMAL LABORATORY HELPER [facility] LDL CHOLESTEROL 164(H) <=130 mg/dL 08/07/2015 5:20 PM ANIMAL LABORATORY HELPER [facility] PATIENT STATUS FASTING 08/07/2015 5:20 PM ANIMAL LABORATORY HELPER [facility] Blood specimen (specimen) BLOOD SPECIMEN / Unknown Venipuncture / Unknown 08/07/2015 10:47 AM ANIMAL LABORATORY HELPER 08/07/2015 10:47 AM ANIMAL LABORATORY HELPER Idalia Guidry MD CHEMISTRY TENA [facility] [address] [place] [address], [place] from Last 3 Months or Most Recently Relevant to Health Maintenance Care Teams Director Speech Relationship Specialty Start Date End Date Pcp, No . PCP - General 09/30/16
--- OUTSIDE RECORDS SUMMARY | 2024-02-28 09:56 | XMS_ITS | Clinical Summary ---
Author Organization [facility] Address [address] [place] [address] Care Team Providers Care Meat Counter Clerk Name Role Phone Unavailable Primary Care Provider Unavailabl e Source Comments Patient records contain information from all sites at [facility]. For routine questions regarding patient records, call [phone] during business hours, M-F 8:00 AM - 5:00 PM Central Time. Record requests for emergency care only can be directed to [phone] at any time.[facility] Medications Medication Sig Dispensed Refills Start Date [...]
--- NOTE | 2024-02-28 10:15 | CRLHL7_ITS ---
For Patients: As a result of the Century Cures Act, medical imaging exams and procedure reports are released immediately into your electronic medical record. You may view this report before your referring provider. If you have questions, please contact your health care provider. BILATERAL SCREENING MAMMOGRAM WITH COMPUTER-AIDED DETECTION AND TOMOSYNTHESIS TECHNIQUE: CC and MLO views were obtained. These mammographic images have been obtained using full-field digital technique. These mammographic images were interpreted with the benefit of computer-aided detection. Breast Tomosynthesis was used in this interpretation. COMPARISON FILM: Baseline. FINDINGS: There are scattered areas of fibroglandular density. IMPRESSION: There is no radiographic evidence for malignancy. ASSESSMENT: BI-RADS Category 1: Negative RECOMMENDATION: Routine screening mammogram in 1 year. A lay language report of this examination will be provided to the patient. Berry Wallace M.D. Diagnostic Radiologist [email or web address] SP/Dictated by: Berry Wallace MD @ 02/28/2024 12:16:00 PM (Electronically Signed)
== END 2024-02-28 09:53 | disposition home or self-care (01) ==
LOC: MAMMO 09:53
PROVIDERS: PCP Family Medicine; Visit Provider Family Medicine
DX: Z12.31 Encounter for screening mammogram for malignant neoplasm of breast (principal)
CPT/HCPCS: 77063; 77067

== ENCOUNTER 2024-03-01 10:01 | Outpatient (CLI) | payer MEDICARE, SELFPAY ==
--- NOTE | 2024-03-01 10:15 | CRLHL7_ITS ---
For Patients: As a result of the Century Cures Act, medical imaging exams and procedure reports are released immediately into your electronic medical record. You may view this report before your referring provider. If you have questions, please contact your health care provider. Technique: Double-contrast esophagram performed after the uneventful administration of effervescent crystals and thick barium followed by thin barium. Fluoroscopy time 1 minute 7 seconds. Indication: Dysphagia Comparison: None. Findings: Esophagus: Small sliding hiatal hernia is present. Mild mucosal irregularity involving the mid esophagus. No stricture. No ulcer. Decreased esophageal motility. Gastroesophageal reflux: Present. Impression: Spontaneous reflux with decreased esophageal motility small sliding hiatal hernia. 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 Dictated by Berry Wallace MD @ 03/01/2024 11:13:47 AM (Electronically Signed)
== END 2024-03-01 10:02 | disposition home or self-care (01) ==
LOC: RAD 10:01
PROVIDERS: PCP Family Medicine; Visit Provider Internal Medicine Gastroenterology
DX: R13.19 Other dysphagia (principal); K21.9 Gastro-esophageal reflux disease without esophagitis; K44.9 Diaphragmatic hernia without obstruction or gangrene
CPT/HCPCS: 74221

== ENCOUNTER 2024-07-28 21:58 | Emergency (ER) | payer MEDICARE, SELFPAY ==
[2024-07-28] VITALS (8 sets, daily range): BP systolic 99–120; BP diastolic 70–79; PULSE 62–74; RESP 13–16; TEMP 36.7; O2SAT 92–95; BMI 40.7
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
[2024-07-28] MEDS: 0.9 % SODIUM CHLORIDE 500 ML 500 ML 1000 ML IV (22:37)
[2024-07-28 23:08] LABS: Basophils Absolute Auto 0.03 K/uL (0.00-0.30); Basophils Percent Auto 0.4 % (0.0-3.0); Eosinophils Absolute Auto 0.19 K/uL (0.00-0.50); Eosinophils Percent Auto 2.3 % (0.0-7.0); Hematocrit 37.6 % (33.0-51.0); Hemoglobin* 12.5 gm/dL (12.0-16.0); Immature Granulocytes Abs Auto 0.12 K/uL (0.00-0.30); Immature Granulocytes Pct Auto 1.4 %; Lymphocytes Absolute Auto 2.49 K/uL (0.90-2.90); Lymphocytes Percent Auto 30.1 % (20-44); Mean Corpuscular HGB Conc 33 gm/dL (32-36); Mean Corpuscular Hemoglobin 32 pg (26-34); Mean Corpuscular Volume 96 fL (80-100); Monocytes Percent Auto 7.7 % (0.0-11.0); Neutrophils Absolute Auto 4.81 K/uL (1.7-7.0); Neutrophils Percent Auto 58.1 % (42.0-72.0); Platelet Count* 186 K/uL (140-440); RDW Coefficient of Variation % 12.6 % (11.5-15.5); Red Blood Count 3.91 m/uL (4.00-5.20); Slide Review Reflex No; White Blood Count* 8.28 K/uL (4.50-11.00)
[2024-07-28 23:26] LABS: Amphetamine Screen Urine Negative (Negative); Barbiturate Screen Urine Negative (Negative); Benzodiazepines Screen Urine Negative (Negative); Cannabinoid Screen Urine POSITIVE (Negative); Cocaine Screen Urine Negative (Negative); Methadone Screen Urine Negative (Negative); Methamphetamines Screen Urine Negative (Negative); Opiate Screen Urine Negative (Negative); Oxycodone Screen Urine Negative (Negative); Phencyclidine Screen Urine Negative (Negative); Tricyclic Antidepressant Urine Negative (Negative)
[2024-07-28 23:51] LABS: Albumin* 4.3 g/dL (3.3-5.0)
[2024-07-28 23:52] LABS: Chloride* 107 mmol/L (96-114); Sodium* 139 mmol/L (135-149)
[2024-07-28 23:54] LABS: Anion Gap 11 mEq/L (7-15); Aspartate Amino Transferase* 21 U/L (12-35); Bilirubin Direct* 0.2 mg/dL (0.0-0.5); Bilirubin Total* 0.3 mg/dL (0.1-1.5); Blood Urea Nitrogen* 13 mg/dL (7-30); Carbon Dioxide* 21 mmol/L (20-32); Creatinine* 0.8 mg/dL (0.5-1.5); Est. Creatinine Clearance* 47.63; Estimated Glomerular Filt Rate 83 ml/min; Total Protein* 6.3 g/dL (6.0-8.3)
[2024-07-28 23:55] LABS: Alanine Aminotransferase* 14 U/L (4-35); Alkaline Phosphatase* 56 U/L (40-150); Calcium* 8.9 mg/dL (8.4-10.6); Glucose* 106 mg/dL (60-115)
[2024-07-29] VITALS (22 sets, daily range): BP systolic 86–148; BP diastolic 56–99; PULSE 61–84; RESP 8–20; TEMP 36.7; O2SAT 91–95
[2024-07-29 00:08] LABS: Salicylate* < 1.0 mg/dL (1.0-10)
--- NOTE | 2024-07-29 00:44 | PC.NURSE ---
site monitor on with NSR. RR even and unlabored. Pt self adjusting on gurney. SR up times 2 and on site monitor.
[2024-07-29 02:52] LABS: Acetaminophen* < 10.0 ug/mL (10.0-30.0); Salicylate* < 1.0 mg/dL (1.0-10)
== END 2024-07-29 09:40 | disposition home or self-care (01) ==
PROVIDERS: Emergency Provider Family Medicine; PCP Family Medicine
DX: T42.6X1A Poisoning by other antiepileptic and sedative-hypnotic drugs, accidental (unintentional), initial encounter (principal); T74.91XA Unspecified adult maltreatment, confirmed, initial encounter; Z91.410 Personal history of adult physical and sexual abuse; Z91.411 Personal history of adult psychological abuse
CPT/HCPCS: 36415; 80048; 80076; 80143; 80179; 80306; 82077; 85025; 93005; 94761; 99284; 99291; J7030

== ENCOUNTER 2024-11-25 21:54 | Emergency (ER) | payer MEDICARE, SELFPAY ==
--- OUTSIDE RECORDS SUMMARY | 2024-08-02 23:30 | XMS_ITS | Continuity of Care Document ---
Author Organization [facility] Address [address] [address] [place] [address] Phone Care Team Providers Care Can Doffer Name Role Phone No Information Unavailable Unavailable Allergies, Adverse Reactions, Alerts Substance Reaction Status Criticality No Known Allergies Active No Inform ation Medications Medication Instructions Dosage Effective Dates (start - stop) Status Comments lansoprazole 30 mg capsule,delayed release take 1 capsule by oral route 2 times every day 30 minutes before breakfast and 30 minutes before dinner 30 MG - Active lisinopril 2.5 mg tablet take 1 tablet [...] 5 MG - Active Procedures Procedure Date Colonoscopy Flex; W/remov Les- Level Iv-surg Path Gross/micro Offic/outpt E&m Estab Mod-hi 2 Complex e/m visit add on Ugi Endo; W/bx 1/mx Level Iv-surg Path Gross/micro cancelled appt Advance Directives Directive Yes / No Effective Date File Name No Information Encounters Encounter Description Practice Location Reason(s) For Visit Diagnoses Date Provider Providers Copied on Encounter [facility], [address] [address], [place], [id number], [place] tel:[phone] No Information No Information [facility], [address] [address], [place], [id number], [place] tel:[phone] [facility] GI Symptoms or Concerns (chief complaint) Colorectal polypsInternal hemorrhoidsMel anosis coliEncounter for screening for malignant neoplasm of colonBenign neoplasm of transverse colon 4 Abhishek Mcleod. [address] [place] [address], [address], [id number], [place]. tel:[phone] Sabiha King MD. tel:[phone] erring Provider: Referral Self, USE FOR SELF REFERRALS. Offic/outpt E&m Estab Mod-hi 2 [facility], [address] [address], [place], [id number], [place] tel:[phone] [facility] GI Symptoms or Concerns (chief complaint) Pineda esophagus determined by endoscopyGERD without esophagitisCol on cancer screeningEsoph ageal dysphagia 4 Chasity Puentes. [address] [place] [address], [facility] [address] [place], [place], [id number], [place]. tel:[phone] Sabiha King MD. tel:[phone] erring Provider: Sabiha Maldonado, [address], [place], [address]. tel:[phone] [facility], [address] [address], [place], [place], [id number], [place] tel:[phone] [facility] GI Symptoms or Concerns (chief complaint) Hiatal herniaBarrett esophagus determined by endoscopyEpiga stric pain Jan-2 4 Cristy Jara. [address] [facility], [facility] [address], [place], [id number], [place]. tel:[phone] Sabiha King MD. tel:[phone] erring Provider: Sabiha Maldonado, [address], [place], [address]. tel:[phone] [facility], [address] [address], [place], [id number], [place] tel:[phone] [place] [address] Endoscopy Center No Information 0 4 Cristy Jara. [address] [facility], [facility] [address] [place], [place], [id number], [place]. tel:[phone] [facility], [address] [address], [place], [id number], [place] tel:[phone] [place] [address] [facility] GI Symptoms or Concerns (chief complaint) No Information Sep-0 4 Abhishek Mcleod. [address] [facility] [address] [place], [place], [id number], [place]. tel:[phone] Sabiha King MD. tel:[phone] erring Provider: Sabiha Maldonado, [address], [place], [address]. tel:[phone] [facility], [address] [address], [place], [id number], [place] tel:[phone] [facility] No Information 4 Abhishek Mcleod. [address] [facility], [facility], [place], [place], [id number], . tel:[phone] Family History Family Member Type Diagnosis Age At Onset Brother Problem (finding) Cancer, colon Father Problem (finding) Cirrhosis Sister Problem (finding) Cirrhosis Mother Problem (finding) Cirrhosis Mother Problem (finding) Cancer, kidney Brother Problem (finding) Alcoholism Mother Problem (finding) Cancer, cervical Sister Problem (finding) Cancer, liver Sister Problem (finding) Hepatitis C Brother Problem (finding) Cirrhosis Mother Problem (finding) Cancer, liver Brother Problem (finding) Cancer, liver Brother Problem (finding) Cancer, gastric Sister Problem (finding) Hepatitis B Sister Problem (finding) Alcoholism Mother Problem (finding) Cancer, gastric Father Problem (finding) Alcoholism Sister Problem (finding) Cancer, gastric Son Problem (finding) Alcoholism Mother Problem (finding) Alcoholism Immunizations Vaccine Date Status Comments tetanus toxoid, reduced diphtheria toxoid, and acellular pertussis vaccine, adsorbed administered Note: [facility] b i-directional interface ; Source: Other Registry Influenza, Madin [place] Canin e Kidney, subunit, quadrivalent, injectable, preservative free administered Note: [facility] bi-directional interface ; Source: Other Registry SARS-COV-2 (COVID-19) vaccin e, mRNA, spike protein, LNP, bivalent, preservative free, 50 mcg/0.5 mL or 25 mcg/0.25 mL dose administered Note: [facility] bi-direct ional interface ; Source: Other Registry Influenza, injectable, [place]in [place] Canine Kidney, preservative free, quadrivalent administered Note: [place] IC bi- directional interface ; Source: Other Registry Influenza, recombinant, quadrivalent, injectable, preservative free administered Note: [facility] bi-direct ional interface ; Source: Other Registry Seasonal, quadrivalent, [...] bi-directional interface ; Source: Other Registry Novel [id number], all formulations administered Note: [facility] bi-direct ional interface ; Source: Other Registry Payers Payer name Insurance type Covered constitution party ID Authoriza tion(s) No Information Social History Type Description Quantity Date Captured Comments Sex Female Smoking Status No Information Chief Complaint And Reason For Visit No Information Reason For Referral Reason For Referral No Information Plan Of Treatment Date Type Action Status Referral Ordered: Xray Esophagus (Esophagram, Barium Swallow Study) Appointment date/timeframe: 02/23/2024 ordered Referral Ordered: Colonoscopy Appointment date/timeframe: 02/24/2024 ordered History Of Present Illness Encounter Date Complaint History Of Prese nt Illness GI Symptoms or Concerns GI Symptoms or Concerns PRIOR DI AGNOSTICS EGD 01/31/2024 for dyspepsia and heartburn C 6 and 7 Pineda's esophagus. Medium hiatal hernia. Gastric polyps, consistent with benign fundic gland polyps. Normal duodenum. Biopsies taken of the duodenum were normal. Gastric biopsies were normal. Esophagus at 30 cm, 32 cm, 34 cm, and 36 cm all confirm specialized Pineda's mucosa, negative for dysplasia.CHIEF COMPLAINTFollow-up after endoscopy GERD, dysphagia, new diagnosis of Pineda'sHISTORY OF PRESENT ILLNESSRhea Orozco is a 63-year-old female who is seen in esophageal clinic today after her recent endoscopy. She reports a long history of reflux, with symptoms of both heartburn and volume regurgitation. She has trialed omeprazole in the past, though notes this makes her symptoms worse. She has thus only taking Tums at bedtime. The heartburn is primarily overnight, and she is having breakthrough symptoms despite the times about 4-5 nights per week. She also describes volume regurgitation every morning for liquid will simply reflux up. She also describes waterbrash. Although although this is predominantly in the morning, it can occur throughout the day as well.She also describes dysphagia. She has had 2 dramatic episodes where a pork chop was stuck in her upper chest and her had to do the Heimlich remover maneuver in order for her to regurgitate it back up. Milder episodes of dysphagia are occurring several times per week, though not necessarily with every meal. She also describes some dysphagia with liquids alone.There is nausea on and off throughout the day. She also has epigastric pain. She has lost approximately 70 pounds over the last year unintentionally.Her bowel movements are regular. She sees occasional bright red blood per rectum. She has not had prior colonoscopy.PAST MEDICAL HISTORYChronic back pain, hypertension, hyperlipidemia, anxiety/depression, asthmaPAST SURGICAL HISTORYNoneFAMILY HISTORYShe had has a brother, sister, mother, and father, who all from alcoholic related cirrhosis. No family history of Pineda's. No inflammatory bowel disease.SOCIAL HISTORYShe smokes marijuana daily for chronic pain. She drinks 2-3 beers per week. No tobacco.MEDICATIONSLisinopril, gabapentin, trazodone, desvenlafaxine, simvastatin, montelukast, stool softener, Advair, Proventil, oxycodone GI Symptoms or Concerns GI Symptoms or Concerns Functional Status Date Functional Assessmen t No Information Instructions Date Instruction Additional Infor mation Colon Cancer Prevention Related to Colorectal polyps Colon Polyps Related to Color ectal polyps Hemorrhoids (Internal) Related t o Internal hemorrhoids High Fiber Diet Related to Inter nal hemorrhoids Assessments Type Assessment Date No Information Patient Care Teams Name Effective Dates (start - stop) Status Members No Information
--- OUTSIDE RECORDS SUMMARY | 2024-08-02 23:30 | XMS_ITS | Continuity of Care Document ---
Author Organization [facility] Address [address] [address] [place] [address] Phone Care Team Providers Care Community Service Aide Name Role Phone No Information Unavailable Unavailable [...] Diagnoses Date Provider Providers Copied on Encounter [facility], [address] [address], [place], [id number], [place] tel:[phone] No Information No Information [facility], [address] [address], [place], [id number], [place] tel:[phone] [facility] GI Symptoms or Concerns (chief complaint) Colorectal polypsInternal hemorrhoidsMel anosis coliEncounter for screening for malignant neoplasm of colonBenign neoplasm of transverse colon 4 Abhishek Mcleod. [address] [place] [address], [address], [id number], [place]. tel:[phone] Sabiha King MD. tel:[phone] erring Provider: Referral Self, USE FOR SELF REFERRALS. Offic/outpt E&m Estab Mod-hi 2 [facility], [address] [address], [place], [id number], [place] tel:[phone] [facility] GI Symptoms or Concerns (chief complaint) Pineda esophagus determined by endoscopyGERD without esophagitisCol on cancer screeningEsoph ageal dysphagia 4 Chasity Puentes. [address] [place] [address], [facility] [address], [place], [id number], [place]. tel:[phone] Sabiha King MD. tel:[phone] erring Provider: Sabiha Maldonado, [address], [place], [address]. tel:[phone] [facility], [address] [address], [place], [place], [id number], [place] tel:[phone] [facility] GI Symptoms or Concerns (chief complaint) Hiatal herniaBarrett esophagus determined by endoscopyEpiga stric pain Jan-2 4 Cristy Jara. [address] [facility], [facility] [address], [place], [id number], [place]. tel:[phone] Sabiha King MD. tel:[phone] erring Provider: Sabiha Maldonado, [address], [place], [address]. tel:[phone] [facility], [address] [address], [place], [place], [id number], [place] tel:[phone] [place] [address] End[facility] Center No Information 0 4 Cristy Jara. [address] [facility], [facility] [address], [place], [id number], [place]. tel:[phone] [facility], [address] [address], [place], [id number], [place] tel:[phone] [place] [address] [facility] GI Symptoms or Concerns (chief complaint) No Information Sep-0 4 Abhishek Mcleod. [address] [facility] [address], [place], [id number], [place]. tel:[phone] Sabiha King MD. tel:[phone] erring Provider: Sabiha Maldonado, [address], [place], [address]. tel:[phone] [facility], [address] [address], [place], [id number], [place] tel:[phone] [facility] No Information 4 Abhishek Mcleod. [address] [facility], [facility] [address], [place], [place], [id number], . tel:[phone] Family History Family Member Type Diagnosis Age [...] interface ; Source: Other Registry Influenza, Madin [place] Canin e Kidney, subunit, quadrivalent, injectable, preservative free administered Note: [facility] bi-directional interface ; Source: Other Registry SARS-COV-2 (COVID-19) vaccin e, mRNA, spike protein, LNP, bivalent, preservative free, 50 mcg/0.5 mL or 25 mcg/0.25 mL dose administered Note: [facility] bi-direct ional interface ; Source: Other Registry Influenza, injectable, Madin [place] Canine Kidney, preservative free, quadrivalent administered Note: [place] IC bi- directional interface ; Source: Other [...] bi-directional interface ; Source: Other Registry Novel [id number], all formulations administered Note: [facility] bi-direct ional interface ; Source: Other Registry Payers Payer name Insurance type Covered green party ID Authoriza tion(s) No Information Social [...]
[2024-11-25 22:00] VITALS: BP 132/89; PULSE 81; RESP 16; TEMP 36.4; O2SAT 96; BMI 39.9
--- NOTE | 2024-11-25 22:09 | ED.OVERDOSE ---
HPI - Overdose General Date Seen: 11/25/24 <Michel Sanford DO - Last Filed: 11/25/24 23:54> Chief Complaint: Overdose <Michel Sanford DO - Last Filed: 11/25/24 23:54> Stated Complaint: Overdose <Michel Sanford DO - Last Filed: 11/25/24 23:54> Time Seen by Provider: 11/25/24 21:57 <Michel Sanford - Last Filed: 11/25/24 23:54> Source: patient and EMS <Michel Sanford DO - Last Filed: 11/25/24 23:54> Mode of arrival: EMS <Michel Sanford - Last Filed: 11/25/24 23:54> Limitations: no limitations <Michel Sanford - Last Filed: 11/25/24 23:54> History of Present Illness HPI Narrative: Patient is a 64-year-old female presenting to the emergency department for accidental overdose of her ropinirole. She started taking ropinirole at the beginning of this month for restless legs. She states she typically put her nightly meds into a pro container and then takes them all at once. She states the room was dark and the pill container she fills up for her nightly meds is the same size as the 1 that has her ropinirole. Due to this he accidentally took the wrong 1. States it was a complete accident and had no intention of hurting herself. She called poison Control and was recommended to come to the emergency department. EMS states she has been alert and oriented x4 with no issues. She had stable vital signs for them. She was answering all questions appropriately. No any complaints right now is some mild nausea, mild headache and feels very tired. Denies any dizziness, chest pain, shortness of breath, vision changes, abdominal pain, weakness, numbness. No other concerns noted. States she took about 17 of the ropinirole 0.25 mg tablets. <Michel Sanford - Last Filed: 11/25/24 23:54> Related Data Home Medications: Previous Rx's ?Medication ?Instructions ?Recorded ondansetron 4 mg disintegrating 4 mg PO Q8-12H PRN nausea and 08/26/23 tablet vomiting #10 tabs albuterol sulfate 90 mcg/actuation 2 puff inhalation Q2-4H PRN 12/16/23 aerosol inhaler shortness of breath or wheezing #6.7 grams desvenlafaxine succinate 100 mg 100 mg PO QDAY #90 tabs 12/16/23 tablet,extended release 24 hr lisinopril 5 mg tablet 5 mg PO QDAY #90 tabs 12/16/23 montelukast 10 mg tablet 10 mg PO QPM #90 tabs 12/16/23 simvastatin 40 mg tablet 40 mg PO .HS #90 tabs 12/16/23 omeprazole 20 mg capsule,delayed 20 mg PO DAILY #90 caps 07/26/24 release nortriptyline 50 mg capsule 50 mg PO QHS #90 caps 09/20/24 pregabalin 75 mg capsule 75 mg PO TID #270 caps 09/20/24 trazodone 150 mg tablet 150 mg PO DAILY PRN for insomnia 10/29/24 #100 tabs oxycodone 5 mg tablet 5 mg PO BID PRN pain #30 tabs 11/12/24 ropinirole 0.25 mg tablet 0.25 mg PO QHS #30 tabs 11/12/24 <Michel Sanford DO - Last Filed: 11/25/24 23:54> Allergies/Adverse Reactions: Allergies Allergy/AdvReac Type Severity Reaction Status Date / Time tramadol AdvReac Intermediate stomach Verified 09/20/24 11:38 pain and nausea <Michel Sanford DO - Last Filed: 11/25/24 23:54> Review of Systems Status of ROS: Reports: 10 or more systems reviewed and unremarkable except as noted in History and below <Michel Sanford DO - Last Filed: 11/25/24 23:54> [facility] Medical History: Medical History Health care directive on file ?Z78.9 - Other specified health status (ICD-10) <Michel Sanford DO - Last Filed: 11/25/24 23:54> Family History: Family History Other Diabetes High blood pressure Stomach cancer <Michel Sanford DO - Last Filed: 11/25/24 23:54> Social History: Social History Narrative: does not use illicit drugs nonsmoker occasional alcohol consumption What is your current living situation?: I presently have a place to live Problems where you live: no known problems In the past 12 months, utilities in danger of being shut off: no In past 12 months, lack of transportation kept you from medical appts, meetings, work, or getting things needed for daily living: yes In the past 12 mos, have been you worried that your food would run out before you had money to buy more?: sometimes true In the past 12 mos, the food you bought just didn't last and you didn't have money to buy more?: sometimes true Physical activity type: none Smoking Status: Never smoker Do you use any of these nicotine containing products: None How often do you have a drink containing alcohol: 2-4 times a month How many standard drinks containing alcohol do you have on a typical day: 3 or 4 AUDIT-C Alcohol total score: 3 Non-prescribed substance use: marijuana (any form) Caffeine: Yes How often does anyone, including family, friends and others, physically hurt you: never How often does anyone, including family, friends and others, insult or talk down to you: sometimes How often does anyone, including family, friends and others, threaten you with harm: rarely How often does anyone, including family, friends and others, scream or curse at you: sometimes Are you currently sexually active: No Health Related Social Needs: food insecurity (Z59.41), transportation insecurity (Z59.82) and Other personal risk factors, not elsewhere classified (Z91.89) <Michel Sanford DO - Last Filed: 11/25/24 23:54> Exam Narrative: Exam Narrative: Const: Well-nourished, Well-developed, in mild distress Eyes: PERRL, no conjunctival injection, and symmetrical lids HENT: Atraumatic external nose and ears. Moist mucous membranes. Neck: Symmetric, trachea midline, No thyromegaly. CVS: RRR, No murmurs or gallops. Peripheral pulses 2+ and equal in all extremities RESP: Unlabored respiratory effort. Clear to auscultation bilaterally. GI: Nontender/Nondistended, No rebound or guarding. MSK:Extremities w/o deformity, Normal Active ROM Skin: Warm, Dry. No rashes or lesions. Neuro: Normal Muscle tone, No focal neurological deficits. Psych: Awake, Alert, & Oriented x3. Appropriate mood and affect. <Michel Sanford, DO - Last Filed: 11/25/24 23:54> Const: Vital Signs, click to edit/add: Vital Signs - 24 hr 11/25/24 22:00 11/26/24 00:00 11/26/24 00:24 Temperature 97.5 F L Pulse Rate 86 Pulse Rate [Left P ulse Oximeter] 81 80 Respiratory Rate 16 16 21 Blood Pressure Blood Pressure [Le ft Upper Arm] 132/89 130/80 Pulse Oximetry 96 94 91 Oxygen Delivery Me thod Room Air Room Air 11/26/24 00:28 11/26/24 00:29 11/26/24 00:30 Temperature Pulse Rate 80 79 79 Pulse Rate [Left P ulse Oximeter] Respiratory Rate 18 16 17 Blood Pressure 114/64 Blood Pressure [Le ft Upper Arm] Pulse Oximetry 90 92 92 Oxygen Delivery Me thod 11/26/24 00:32 11/26/24 00:37 11/26/24 00:42 Temperature Pulse Rate 76 78 79 Pulse Rate [Left P ulse Oximeter] Respiratory Rate 17 17 15 Blood Pressure 104/62 101/66 109/68 Blood Pressure [Le ft Upper Arm] Pulse Oximetry 92 94 92 Oxygen Delivery Me thod 11/26/24 00:45 11/26/24 00:47 11/26/24 00:48 Temperature Pulse Rate 77 78 79 Pulse Rate [Left P ulse Oximeter] Respiratory Rate 16 16 17 Blood Pressure 111/57 L Blood Pressure [Le ft Upper Arm] Pulse Oximetry 92 91 90 Oxygen Delivery Me thod 11/26/24 00:52 11/26/24 00:57 11/26/24 01:00 Temperature Pulse Rate 81 82 79 Pulse Rate [Left P ulse Oximeter] Respiratory Rate 16 16 17 Blood Pressure 111/67 106/82 Blood Pressure [Le ft Upper Arm] Pulse Oximetry 93 91 91 Oxygen Delivery Me thod 11/26/24 01:02 11/26/24 01:06 11/26/24 01:07 Temperature Pulse Rate 78 76 78 Pulse Rate [Left P ulse Oximeter] Respiratory Rate 18 15 16 Blood Pressure 105/71 113/64 Blood Pressure [Le ft Upper Arm] Pulse Oximetry 91 92 91 Oxygen Delivery Me thod 11/26/24 01:11 11/26/24 01:15 11/26/24 01:30 Temperature Pulse Rate 77 86 78 Pulse Rate [Left P ulse Oximeter] Respiratory Rate 18 14 17 Blood Pressure 104/66 Blood Pressure [Le ft Upper Arm] Pulse Oximetry 93 95 91 Oxygen Delivery Me thod 11/26/24 01:45 11/26/24 02:00 11/26/24 02:02 Temperature Pulse Rate 85 74 77 Pulse Rate [Left P ulse Oximeter] Respiratory Rate 19 14 19 Blood Pressure 120/73 Blood Pressure [Le ft Upper Arm] Pulse Oximetry 93 94 93 Oxygen Delivery Me thod 11/26/24 02:15 11/26/24 02:30 11/26/24 02:45 Temperature Pulse Rate 76 77 79 Pulse Rate [Left P ulse Oximeter] Respiratory Rate 16 18 20 Blood Pressure Blood Pressure [Le ft Upper Arm] Pulse Oximetry 94 93 93 Oxygen Delivery Me thod 11/26/24 03:00 11/26/24 03:02 11/26/24 03:15 Temperature Pulse Rate 75 75 73 Pulse Rate [Left P ulse Oximeter] Respiratory Rate 16 16 17 Blood Pressure 120/76 Blood Pressure [Le ft Upper Arm] Pulse Oximetry 92 93 93 Oxygen Delivery Me thod <Michel Sanford, DO - Last Filed: 11/25/24 23:54> Vital Signs, click to edit/add: Vital Signs - 24 hr 11/25/24 22:00 11/26/24 00:00 11/26/24 00:24 Temperature 97.5 F L Pulse Rate 86 Pulse Rate [Left P ulse Oximeter] 81 80 Respiratory Rate 16 16 21 Blood Pressure Blood Pressure [Le ft Upper Arm] 132/89 130/80 Pulse Oximetry 96 94 91 Oxygen Delivery Me thod Room Air Room Air 11/26/24 00:28 11/26/24 00:29 11/26/24 00:30 Temperature Pulse Rate 80 79 79 Pulse Rate [Left P ulse Oximeter] Respiratory Rate 18 16 17 Blood Pressure 114/64 Blood Pressure [Le ft Upper Arm] Pulse Oximetry 90 92 92 Oxygen Delivery Me thod 11/26/24 00:32 11/26/24 00:37 11/26/24 00:42 Temperature Pulse Rate 76 78 79 Pulse Rate [Left P ulse Oximeter] Respiratory Rate 17 17 15 Blood Pressure 104/62 101/66 109/68 Blood Pressure [Le ft Upper Arm] Pulse Oximetry 92 94 92 Oxygen Delivery Me thod 11/26/24 00:45 11/26/24 00:47 11/26/24 00:48 Temperature Pulse Rate 77 78 79 Pulse Rate [Left P ulse Oximeter] Respiratory Rate 16 16 17 Blood Pressure 111/57 L Blood Pressure [Le ft Upper Arm] Pulse Oximetry 92 91 90 Oxygen Delivery Me thod 11/26/24 00:52 11/26/24 00:57 11/26/24 01:00 Temperature Pulse Rate 81 82 79 Pulse Rate [Left P ulse Oximeter] Respiratory Rate 16 16 17 Blood Pressure 111/67 106/82 Blood Pressure [Le ft Upper Arm] Pulse Oximetry 93 91 91 Oxygen Delivery Me thod 11/26/24 01:02 11/26/24 01:06 11/26/24 01:07 Temperature Pulse Rate 78 76 78 Pulse Rate [Left P ulse Oximeter] Respiratory Rate 18 15 16 Blood Pressure 105/71 113/64 Blood Pressure [Le ft Upper Arm] Pulse Oximetry 91 92 91 Oxygen Delivery Me thod 11/26/24 01:11 11/26/24 01:15 11/26/24 01:30 Temperature Pulse Rate 77 86 78 Pulse Rate [Left P ulse Oximeter] Respiratory Rate 18 14 17 Blood Pressure 104/66 Blood Pressure [Le ft Upper Arm] Pulse Oximetry 93 95 91 Oxygen Delivery Me thod 11/26/24 01:45 11/26/24 02:00 11/26/24 02:02 Temperature Pulse Rate 85 74 77 Pulse Rate [Left P ulse Oximeter] Respiratory Rate 19 14 19 Blood Pressure 120/73 Blood Pressure [Le ft Upper Arm] Pulse Oximetry 93 94 93 Oxygen Delivery Me thod 11/26/24 02:15 11/26/24 02:30 11/26/24 02:45 Temperature Pulse Rate 76 77 79 Pulse Rate [Left P ulse Oximeter] Respiratory Rate 16 18 20 Blood Pressure Blood Pressure [Le ft Upper Arm] Pulse Oximetry 94 93 93 Oxygen Delivery Me thod 11/26/24 03:00 11/26/24 03:02 11/26/24 03:15 Temperature Pulse Rate 75 75 73 Pulse Rate [Left P ulse Oximeter] Respiratory Rate 16 16 17 Blood Pressure 120/76 Blood Pressure [Le ft Upper Arm] Pulse Oximetry 92 93 93 Oxygen Delivery Ky thod <Vincent Harrington MD - Last Filed: 11/26/24 05:13> Course Reevaluation(s) Time of Reevaluation #2: 23:46 <Vincent Harrington MD - Last Filed: 11/26/24 05:13> Reevaluation #2: Signout from Dr. Sanford. Briefly, 64-year-old female who accidentally overdosed on her ropinirole. Per poison Control, watch for altered mentation, confusion, hypotension. Patient will be observed in the emergency department if remains stable, can be discharged in the morning. EKG independently interpreted by me performed at 12:08 a.m. demonstrates sinus rhythm rate 77, normal intervals, normal axis, QTC 448, ME 164, QRS 84, no acute ischemic changes. No prior for comparison <Vincent Harrington MD - Last Filed: 11/26/24 05:13> Time of Reevaluation #3: 05:12 <Vincent Harrington MD - Last Filed: 11/26/24 05:13> Reevaluation #3: Patient recheck, remains stable in the emergency department overnight, no hypotension, rouses easily to voice and is oriented, appropriate. Stable for discharge. <Vincent Harrington MD - Last Filed: 11/26/24 05:13> Vital Signs Vital signs: Initial Vital Signs Temperature 97.5 F L 11/25/24 22:00 Temperature Source Temporal Artery Scan 11/25/24 22:00 Pulse Rate 81 11/25/24 22:00 Respiratory Rate 16 11/25/24 22:00 Blood Pressure 132/89 11/25/24 22:00 Blood Pressure Mean 103 11/25/24 22:00 Blood Pressure Position Semi-Fowlers 11/25/24 22:00 Pulse Oximetry 96 11/25/24 22:00 Oxygen Delivery Method Room Air 11/25/24 22:00 Vital Signs Temperature 97.5 F L 11/25/24 22:00 Pulse Rate 81 11/25/24 22:00 Respiratory Rate 16 11/25/24 22:00 Blood Pressure 132/89 11/25/24 22:00 Pulse Oximetry 96 11/25/24 22:00 Oxygen Delivery Method Room Air 11/25/24 22:00 Temperature 97.5 F L 11/25/24 22:00 Pulse Rate 73 11/26/24 03:15 Respiratory Rate 17 11/26/24 03:15 Blood Pressure 120/76 11/26/24 03:02 Pulse Oximetry 93 11/26/24 03:15 Oxygen Delivery Method Room Air 11/26/24 00:00 <Michel Sanford DO - Last Filed: 11/25/24 23:54> Initial Vital Signs Temperature 97.5 F L 11/25/24 22:00 Temperature Source Temporal Artery Scan 11/25/24 22:00 Pulse Rate 81 11/25/24 22:00 Respiratory Rate 16 11/25/24 22:00 Blood Pressure 132/89 11/25/24 22:00 Blood Pressure Mean 103 11/25/24 22:00 Blood Pressure Position Semi-Fowlers 11/25/24 22:00 Pulse Oximetry 96 11/25/24 22:00 Oxygen Delivery Method Room Air 11/25/24 22:00 Vital Signs Temperature 97.5 F L 11/25/24 22:00 Pulse Rate 81 11/25/24 22:00 Respiratory Rate 16 11/25/24 22:00 Blood Pressure 132/89 11/25/24 22:00 Pulse Oximetry 96 11/25/24 22:00 Oxygen Delivery Method Room Air 11/25/24 22:00 Temperature 97.5 F L 11/25/24 22:00 Pulse Rate 73 11/26/24 03:15 Respiratory Rate 17 11/26/24 03:15 Blood Pressure 120/76 11/26/24 03:02 Pulse Oximetry 93 11/26/24 03:15 Oxygen Delivery Method Room Air 11/26/24 00:00 <Vincent Harrington MD - Last Filed: 11/26/24 05:13> Medications Administered Medications: Discontinued Medications Generic Name Dose Route Start Last Admin Trade Name Freq PRN Reason Stop Dose Admin Ondansetron HCl 4 mg 11/25/24 22:20 11/25/24 22:37 Ondansetron 2 Mg/Ml Inj IVP 11/25/24 22:21 4 mg ONCE ONE Administration <Michel Sanford DO - Last Filed: 11/25/24 23:54> Discontinued Medications Generic Name Dose Route Start Last Admin Trade Name Carina PRN Reason Stop Dose Admin Ondansetron HCl 4 mg 11/25/24 22:20 11/25/24 22:37 Ondansetron 2 Mg/Ml Inj IVP 11/25/24 22:21 4 mg ONCE ONE Administration <Vincent Harrington MD - Last Filed: 11/26/24 05:13> MDM - Overdose MDM Narrative Medical decision making narrative: Patient is a 64-year-old female presenting for accidental overdose of ropinirole. Poison control contacted. They recommend monitoring her until 06:00. The firmness to watch for signs of dystonic reactions. If that occurs give her Benadryl. Also expect orthostatic hypotension and some confusion. The should clear on the around. If she is asymptomatic by 6 cm she is safe for discharge. She will be signed out to my colleague. Basic labs were ordered and showed no concerning findings. She did get some nausea and Zofran was given. Zofran helped with her symptoms. She will be sign out to my colleague <Michel Sanford DO - Last Filed: 11/25/24 23:54> Lab Data Labs: Lab Results 11/25/24 Range/Units 22:28 WBC 8.16 (4.50-11.00) K/uL RBC 4.27 (4.00-5.20) m/uL Hgb 13.7 (12.0-16.0) gm/dL Hct 40.7 (33.0-51.0) % MCV 95 (80-100) fL MCH 32 (26-34) pg MCHC 34 (32-36) gm/dL RDW Coeff of Pamella 12.2 (11.5-15.5) % Plt Count 209 (140-440) K/uL Neut % (Auto) 50.8 (42.0-72.0) % Lymph % (Auto) 34.8 (20-44) % [place] % (Auto) 9.6 (0.0-11.0) % Eos % (Auto) 2.9 (0.0-7.0) % Baso % (Auto) 0.4 (0.0-3.0) % Neut # (Auto) 4.15 (1.7-7.0) K/uL Lymph # (Auto) 2.84 (0.90-2.90) K/uL [place] # (Auto) 0.80 (0.00-0.90) K/UL Eos # (Auto) 0.24 (0.00-0.50) K/uL Baso # (Auto) 0.03 (0.00-0.30) K/uL Abs Immat Gran (auto) 0.12 (0.00-0.30) K/uL Imm/Tot Granulo (auto) 1.5 % Sodium 136 (135-149) mmol/L Potassium 3.7 (3.6-5.1) mmol/L Chloride 104 (96-114) mmol/L Carbon Dioxide 26 (20-32) mmol/L Anion Gap 6 L (7-15) mEq/L BUN 14 (7-30) mg/dL Creatinine 0.9 (0.5-1.5) mg/dL Estimated Creat Clear 47.63 Estimated GFR 72 ml/min Glucose 108 (60-115) mg/dL Calcium 9.5 (8.4-10.6) mg/dL <Michel Sanford, DO - Last Filed: 11/25/24 23:54> Lab Results 11/25/24 Range/Units 22:28 WBC 8.16 (4.50-11.00) K/uL RBC 4.27 (4.00-5.20) m/uL Hgb 13.7 (12.0-16.0) gm/dL Hct 40.7 (33.0-51.0) % MCV 95 (80-100) fL MCH 32 (26-34) pg MCHC 34 (32-36) gm/dL RDW Coeff of Pamella 12.2 (11.5-15.5) % Plt Count 209 (140-440) K/uL Neut % (Auto) 50.8 (42.0-72.0) % Lymph % (Auto) 34.8 (20-44) % [place] % (Auto) 9.6 (0.0-11.0) % Eos % (Auto) 2.9 (0.0-7.0) % Baso % (Auto) 0.4 (0.0-3.0) % Neut # (Auto) 4.15 (1.7-7.0) K/uL Lymph # (Auto) 2.84 (0.90-2.90) K/uL [place] # (Auto) 0.80 (0.00-0.90) K/UL Eos # (Auto) 0.24 (0.00-0.50) K/uL Baso # (Auto) 0.03 (0.00-0.30) K/uL Abs Immat Gran (auto) 0.12 (0.00-0.30) K/uL Imm/Tot Granulo (auto) 1.5 % Sodium 136 (135-149) mmol/L Potassium 3.7 (3.6-5.1) mmol/L Chloride 104 (96-114) mmol/L Carbon Dioxide 26 (20-32) mmol/L Anion Gap 6 L (7-15) mEq/L BUN 14 (7-30) mg/dL Creatinine 0.9 (0.5-1.5) mg/dL Estimated Creat Clear 47.63 Estimated GFR 72 ml/min Glucose 108 (60-115) mg/dL Calcium 9.5 (8.4-10.6) mg/dL <Vincent Harrington MD - Last Filed: 11/26/24 05:13> Discharge Plan Discharge Clinical Impression: Accidental overdose <Michel Sanford DO - Last Filed: 11/25/24 23:54> Patient Disposition: Home, Self-Care <Michel Sanford DO - Last Filed: 11/25/24 23:54> Condition: Stable <Michel Sanford DO - Last Filed: 11/25/24 23:54> Instructions: Adult Overdose (ED) <Michel Sanford DO - Last Filed: 11/25/24 23:54> Additional Instructions: Restart your repinirole own November 27 <Michel Sanford DO - Last Filed: 11/25/24 23:54> Activity Level: No Restrictions <Michel Sanford DO - Last Filed: 11/25/24 23:54> No Restrictions <Vincent Harrington MD - Last Filed: 11/26/24 05:13> Prescriptions: No Action albuterol sulfate 90 mcg/actuation HFA aerosol inhaler 2 puff inhalation Q2-4H PRN (Reason: shortness of breath or wheezing) Qty: 6.7 11RF desvenlafaxine succinate 100 mg tablet extended release 24 hr 100 mg PO QDAY Qty: 90 3RF lisinopril 5 mg tablet 5 mg PO QDAY Qty: 90 4RF montelukast 10 mg tablet 10 mg PO QPM Qty: 90 3RF simvastatin 40 mg tablet 40 mg PO .HS Qty: 90 3RF ondansetron 4 mg tablet,disintegrating 4 mg PO Q8-12H PRN (Reason: nausea and vomiting) Qty: 10 0RF nortriptyline 50 mg capsule 50 mg PO QHS Qty: 90 3RF pregabalin 75 mg capsule 75 mg PO TID Qty: 270 0RF omeprazole 20 mg capsule,delayed release(DR/EC) 20 mg PO DAILY Qty: 90 0RF trazodone 150 mg tablet 150 mg PO DAILY PRN (Reason: for insomnia) Qty: 100 1RF oxycodone 5 mg tablet 5 mg PO BID PRN (Reason: pain) Qty: 30 0RF ropinirole 0.25 mg tablet 0.25 mg PO QHS Qty: 30 3RF <Michel Sanford DO - Last Filed: 11/25/24 23:54> Follow Up/Referrals: Sabiha King MD [Primary Care Provider, Family Practice] <Michel Sanford DO - Last Filed: 11/25/24 23:54> Stand Alone Forms: [facility] Info Instructions <Michel Sanford DO - Last Filed: 11/25/24 23:54>
[2024-11-25] MEDS: ONDANSETRON 2 MG/ML inj 4 MG IVP (22:37)
[2024-11-25 22:41] LABS: Basophils Absolute Auto 0.03 K/uL (0.00-0.30); Basophils Percent Auto 0.4 % (0.0-3.0); Eosinophils Absolute Auto 0.24 K/uL (0.00-0.50); Eosinophils Percent Auto 2.9 % (0.0-7.0); Hematocrit 40.7 % (33.0-51.0); Hemoglobin* 13.7 gm/dL (12.0-16.0); Immature Granulocytes Abs Auto 0.12 K/uL (0.00-0.30); Immature Granulocytes Pct Auto 1.5 %; Lymphocytes Absolute Auto 2.84 K/uL (0.90-2.90); Lymphocytes Percent Auto 34.8 % (20-44); Mean Corpuscular HGB Conc 34 gm/dL (32-36); Mean Corpuscular Hemoglobin 32 pg (26-34); Mean Corpuscular Volume 95 fL (80-100); Monocytes Percent Auto 9.6 % (0.0-11.0); Neutrophils Absolute Auto 4.15 K/uL (1.7-7.0); Neutrophils Percent Auto 50.8 % (42.0-72.0); Platelet Count* 209 K/uL (140-440); RDW Coefficient of Variation % 12.2 % (11.5-15.5); Red Blood Count 4.27 m/uL (4.00-5.20); White Blood Count* 8.16 K/uL (4.50-11.00)
[2024-11-25 22:43] LABS: Slide Review Reflex No
[2024-11-25 22:58] LABS: Chloride* 104 mmol/L (96-114); Potassium* 3.7 mmol/L (3.6-5.1); Sodium* 136 mmol/L (135-149)
[2024-11-25 23:01] LABS: Anion Gap 6 mEq/L (7-15); Blood Urea Nitrogen* 14 mg/dL (7-30); Calcium* 9.5 mg/dL (8.4-10.6); Carbon Dioxide* 26 mmol/L (20-32); Creatinine* 0.9 mg/dL (0.5-1.5); Est. Creatinine Clearance* 47.63; Estimated Glomerular Filt Rate 72 ml/min; Glucose* 108 mg/dL (60-115)
[2024-11-26] VITALS (39 sets, daily range): BP systolic 101–130; BP diastolic 57–82; PULSE 72–86; RESP 13–21; O2SAT 90–97
== END 2024-11-26 05:52 | disposition home or self-care (01) ==
PROVIDERS: Emergency Provider Student in an Organized Health Care Education/Training Program; PCP Family Medicine
DX: T42.8X1A Poisoning by antiparkinsonism drugs and other central muscle-tone depressants, accidental (unintentional), initial encounter (principal)
CPT/HCPCS: 36415; 80048; 85025; 93005; 96374; 99284; J2405

== ENCOUNTER 2024-12-08 18:30 | Emergency (ER) | payer MEDICARE, SELFPAY ==
[2024-12-08 18:35] VITALS: BP 155/96; PULSE 76; RESP 18; TEMP 36.6; O2SAT 94; BMI 40.2
--- NOTE | 2024-12-08 18:46 | CRLHL7_ITS ---
For Patients: As a result of the Cures Act, medical imaging exams and procedure reports are released immediately into your electronic medical record. You may view this report before your referring provider. If you have questions, please contact your health care provider. Indication: Trauma. Technique: Right 2nd digit, 3 views. Comparison: None. Findings/Impression: Bones: Acute nondisplaced 2nd digit distal phalanx fracture. Joint spaces: Unremarkable. Soft tissues: Associated soft tissue swelling. Dictated by Charles Montes De Oca MD @ 12/08/2024 7:02:15 PM (Electronically Signed)
--- NOTE | 2024-12-08 19:03 | ED.GENADULT ---
HPI - General Adult General Chief complaint: Extremity Pain/Injury, Upper Stated complaint: L hand injury Time Seen by Provider: 12/08/24 18:32 Source: patient Mode of arrival: ambulatory Limitations: no limitations History of Present Illness HPI narrative: 64-year-old female presenting today after she squeezed her pointer finger on the right hand between 2 buckley's hooks. Denies other injury. Tetanus shot is up to date, updated in 2023. Related Data Previous Rx's ?Medication ?Instructions ?Recorded ondansetron 4 mg disintegrating 4 mg PO Q8-12H PRN nausea and 08/26/23 tablet vomiting #10 tabs albuterol sulfate 90 mcg/actuation 2 puff inhalation Q2-4H PRN 12/16/23 aerosol inhaler shortness of breath or wheezing #6.7 grams desvenlafaxine succinate 100 mg 100 mg PO QDAY #90 tabs 12/16/23 tablet,extended release 24 hr lisinopril 5 mg tablet 5 mg PO QDAY #90 tabs 12/16/23 montelukast 10 mg tablet 10 mg PO QPM #90 tabs 12/16/23 simvastatin 40 mg tablet 40 mg PO .HS #90 tabs 12/16/23 nortriptyline 50 mg capsule 50 mg PO QHS #90 caps 09/20/24 pregabalin 75 mg capsule 75 mg PO TID #270 caps 09/20/24 trazodone 150 mg tablet 150 mg PO DAILY PRN for insomnia 10/29/24 #100 tabs oxycodone 5 mg tablet 5 mg PO BID PRN pain #30 tabs 11/12/24 ropinirole 0.25 mg tablet 0.25 mg PO QHS #30 tabs 11/12/24 omeprazole 20 mg capsule,delayed 20 mg PO DAILY #90 caps 12/06/24 release Allergies Allergy/AdvReac Type Severity Reaction Status Date / Time tramadol AdvReac Intermediate stomach Verified 12/08/24 18:39 pain and nausea Review of Systems Status of ROS: Reports: 6 or more systems reviewed and unremarkable except as noted in History and below [facility] Medical History Health care directive on file ?Z78.9 - Other specified health status (ICD-10) Family History Other Diabetes High blood pressure Stomach cancer Social History Narrative: does not use illicit drugs nonsmoker occasional alcohol consumption What is your current living situation?: I presently have a place to live Problems where you live: no known problems In the past 12 months, utilities in danger of being shut off: no In past 12 months, lack of transportation kept you from medical appts, meetings, work, or getting things needed for daily living: yes In the past 12 mos, have been you worried that your food would run out before you had money to buy more?: sometimes true In the past 12 mos, the food you bought just didn't last and you didn't have money to buy more?: sometimes true Physical activity type: none Smoking Status: Never smoker Do you use any of these nicotine containing products: None Second hand tobacco smoke exposure: No How often do you have a drink containing alcohol: 2-4 times a month How many standard drinks containing alcohol do you have on a typical day: 3 or 4 AUDIT-C Alcohol total score: 3 Non-prescribed substance use: marijuana (any form) Caffeine: Yes How often does anyone, including family, friends and others, physically hurt you: never How often does anyone, including family, friends and others, insult or talk down to you: sometimes How often does anyone, including family, friends and others, threaten you with harm: rarely How often does anyone, including family, friends and others, scream or curse at you: sometimes Are you currently sexually active: No Health Related Social Needs: food insecurity (Z59.41), transportation insecurity (Z59.82) and Other personal risk factors, not elsewhere classified (Z91.89) Exam Narrative: Exam Narrative: Overweight, well-developed patient in no acute distress. Alert and oriented. Answers questions appropriately. HEENT: Normocephalic atraumatic. Extraocular muscles are intact. Conjunctivae are moist without any icterus noted. Moist mucous membranes. Hand: Very tender at the tip of the pointer finger. At the base of the nail of the pointer finger she has a laceration that penetrates through the dermis but there is no nail or bone visible. The nail is still very much in place and secured to the nail bed. Small skin avulsion on the 3rd lateral digit that does not penetrate through the dermis. Const: Vital Signs, click to edit/add: Vital Signs - 24 hr 12/08/24 18:35 Temperature 97.8 F Pulse Rate [Right Pulse Oximeter] 76 Respiratory Rate 18 Blood Pressure [Ri ght Forearm] 155/96 H Pulse Oximetry 94 Oxygen Delivery Me thod Room Air Course Course ED Course: X-ray of the finger, read by me, was done showing a nondisplaced distal phalanx fracture. While in the ED we soaked the fingers in cleaned in the usual sterile manner a digital block was done of the 2nd digit and 2 sutures were placed at the skin flap just proximal to the nail. Wound was dressed them splint was placed Vital Signs Vital signs: Initial Vital Signs Temperature 97.8 F 12/08/24 18:35 Temperature Source Temporal Artery Scan 12/08/24 18:35 Pulse Rate 76 12/08/24 18:35 Pulse Rhythm Regular 12/08/24 18:35 Pulse Strength 3+ Normal 12/08/24 18:35 Respiratory Rate 18 12/08/24 18:35 Blood Pressure 155/96 H 12/08/24 18:35 Blood Pressure Mean 115 H 12/08/24 18:35 Blood Pressure Position Sitting 12/08/24 18:35 Pulse Oximetry 94 12/08/24 18:35 Oxygen Delivery Method Room Air 12/08/24 18:35 Vital Signs Temperature 97.8 F 12/08/24 18:35 Pulse Rate 76 12/08/24 18:35 Respiratory Rate 18 12/08/24 18:35 Blood Pressure 155/96 H 12/08/24 18:35 Pulse Oximetry 94 12/08/24 18:35 Oxygen Delivery Method Room Air 12/08/24 18:35 Temperature 97.8 F 12/08/24 18:35 Pulse Rate 76 12/08/24 18:35 Respiratory Rate 18 12/08/24 18:35 Blood Pressure 155/96 H 12/08/24 18:35 Pulse Oximetry 94 12/08/24 18:35 Oxygen Delivery Method Room Air 12/08/24 18:35 Medical Decision Making MDM Narrative Medical decision making narrative: 64-year-old female with a laceration to the finger and a tuft fracture. Treated per above. Imaging Data Finger x-ray: Attestation: I have reviewed the pertinent imaging results. Radiologist's impression: Technique: Right 2nd digit, 3 views. Comparison: None. Findings/Impression: Bones: Acute nondisplaced 2nd digit distal phalanx fracture. Joint spaces: Unremarkable. Soft tissues: Associated soft tissue swelling. Discharge Plan Discharge Clinical Impression: Distal phalanx or phalanges, closed fracture, Laceration Patient Disposition: Home, Self-Care Condition: Stable Instructions: Finger Fracture (ED) Additional Instructions: Keep wound clean and dry. Do not soak such as taking baths, swimming or doing dishes. Follow-up in approximately 1 week for suture removal with your primary care provider. Watch for signs and symptoms of infection including increasing redness of the area, purulent drainage, or fever. If this occurs follow-up right away with your doctor or return to the ER. Prescriptions: No Action albuterol sulfate 90 mcg/actuation HFA aerosol inhaler 2 puff inhalation Q2-4H PRN (Reason: shortness of breath or wheezing) Qty: 6.7 11RF desvenlafaxine succinate 100 mg tablet extended release 24 hr 100 mg PO QDAY Qty: 90 3RF lisinopril 5 mg tablet 5 mg PO QDAY Qty: 90 4RF montelukast 10 mg tablet 10 mg PO QPM Qty: 90 3RF simvastatin 40 mg tablet 40 mg PO .HS Qty: 90 3RF ondansetron 4 mg tablet,disintegrating 4 mg PO Q8-12H PRN (Reason: nausea and vomiting) Qty: 10 0RF nortriptyline 50 mg capsule 50 mg PO QHS Qty: 90 3RF pregabalin 75 mg capsule 75 mg PO TID Qty: 270 0RF trazodone 150 mg tablet 150 mg PO DAILY PRN (Reason: for insomnia) Qty: 100 1RF oxycodone 5 mg tablet 5 mg PO BID PRN (Reason: pain) Qty: 30 0RF ropinirole 0.25 mg tablet 0.25 mg PO QHS Qty: 30 3RF omeprazole 20 mg capsule,delayed release(DR/EC) 20 mg PO DAILY Qty: 90 2RF Follow Up/Referrals: Sabiha King MD [Primary Care Provider, Family Practice] Stand Alone Forms: [employer] Info Instructions
[2024-12-08] MEDS: lidocaine HCL 2 % MULTIDOSE 20 ML VIAL INJECTION (19:35)
== END 2024-12-08 20:00 | disposition home or self-care (01) ==
PROVIDERS: Emergency Provider Family Medicine; PCP Family Medicine
DX: S62.630A Displaced fracture of distal phalanx of right index finger, initial encounter for closed fracture (principal); W23.0XXA Caught, crushed, jammed, or pinched between moving objects, initial encounter
CPT/HCPCS: 73140; 99283; 99284

== ENCOUNTER 2025-02-20 11:46 | Outpatient (CLI) | payer MEDICARE, SELFPAY | END 2025-02-20 11:47 | disposition home or self-care (01) | PROVIDERS: PCP Family Medicine; Visit Provider Family Medicine | DX: E78.2 Mixed hyperlipidemia (principal); I10 Essential (primary) hypertension; R73.09 Other abnormal glucose; R80.9 Proteinuria, unspecified | CPT/HCPCS: 80053; 80061; 82043; 82570 ==

== ENCOUNTER 2025-03-01 08:35 | Outpatient (CLI) | payer MEDICARE, SELFPAY ==
--- NOTE | 2025-03-01 09:15 | CRLHL7_ITS ---
For Patients: As a result of the Century Cures Act, medical imaging exams and procedure reports are released immediately into your electronic medical record. You may view this report before your referring provider. If you have questions, please contact your health care provider. INDICATION: Right upper quadrant pain COMPARISON: none TECHNIQUE: Real time hartman scale imaging and color Doppler analysis was performed of the right upper quadrant. FINDINGS: The patient`s liver is of normal size and has diffusely increased echogenicity. There is a normal appearance of the hepatic IVC and proximal abdominal aorta. There is no evidence of ascites. The gallbladder is of normal size and there is no evidence of intraluminal stones or sludge. The gallbladder wall measures 2 mm in thickness. The common bile duct is of normal size and measures 4 mm in diameter at the level of the cade hepatis. The visualized pancreas appears normal. There is no evidence of a stone or hydronephrosis within the right kidney. The right kidney measures 10.3 cm in length. IMPRESSION: Hepatic steatosis. Remainder unremarkable. Dictated by Berry Wallace MD @ 03/01/2025 12:25:56 PM (Electronically Signed)
== END 2025-03-01 08:36 | disposition home or self-care (01) ==
LOC: US 08:36
PROVIDERS: PCP Family Medicine; Visit Provider Family Medicine
DX: R10.11 Right upper quadrant pain (principal); K76.0 Fatty (change of) liver, not elsewhere classified
CPT/HCPCS: 76705

== ENCOUNTER 2025-03-29 10:50 | Outpatient (CLI) | payer MEDICARE, SELFPAY ==
--- NOTE | 2025-03-29 11:30 | CRLHL7_ITS ---
For Patients: As a result of the Century Cures Act, medical imaging exams and procedure reports are released immediately into your electronic medical record. You may view this report before your referring provider. If you have questions, please contact your health care provider. INDICATION: BILATERAL SCREENING MAMMOGRAM, ASYMPTOMATIC 64 Y/O FEMALE COMPARISON: 02/28/2024 TECHNIQUE: Digital mammogram in CC and MLO projections including computer-aided detection (CAD) and tomosynthesis. BREAST COMPOSITION: There are scattered areas of fibroglandular density. FINDINGS: No suspicious findings. ASSESSMENT: BI-RADS 1 Negative RECOMMENDATION: Annual screening mammogram. A lay language report of this examination will be provided to the patient. Dictated by: Berry Wallace MD @ 04/01/2025 09:27:51 (Electronically Signed)
== END 2025-03-29 10:51 | disposition home or self-care (01) ==
LOC: MAMMO 10:51
PROVIDERS: PCP Family Medicine; Visit Provider Family Medicine
DX: Z12.31 Encounter for screening mammogram for malignant neoplasm of breast (principal)
CPT/HCPCS: 77063; 77067